=== PATIENT | male | born 1970 | race Caucasian/White ===

== ENCOUNTER 2023-04-07 14:32 | Day surgery (SDC) | payer OTHER, SELFPAY ==
--- NOTE | 2023-04-07 14:40 | FL_ITS ---
[address] [address] Patient Name: SUKH ADLER MRN: [id number] date: 1970 Sex: M Assigned Patient Location: [place] Current Patient Location: Accession/Order Number: [id number] Exam Date: 04/07/2023 14:50 Report Date: 04/07/2023 17:03 At the request of: NON-STAFF PHYSICIAN Procedure: FL guided needle placement EXAMINATION: FL hip inj [place], FL guided needle placement HISTORY: Bilateral Hip Pain COMPARISON: No relevant comparison available. FLUOROSCOPY TIME: TECHNIQUE: A joint injection was performed in the usual sterile manner after obtaining informed consent. Standard level fluoroscopic mode of operation utilized. FINDINGS: RIGHT HIP - JOINT: Right hip NEEDLE: 22 gauge, 3.5 spinal needle. MEDICATION: 2cc buffered 1% lidocaine for subcutaneous anesthesia. 2cc Omnipaque-300 iodinated contrast to visualize the joint space. Mixture of Kenalog 40 mg, 0.5% Bupivacaine 2 mL and Omnipaque 300 3mL was injected into the joint space. TECHNIQUE: Anterior approach. A single stick was successful in gaining access to the joint space. CLINICAL: Decreased pain following injection. COMPLICATIONS: None. OTHER: Negative. FL/FL guided needle placement IMPRESSION: 1. Successful therapeutic right hip injection. FINDINGS: LEFT HIP - JOINT: Left hip NEEDLE: 22 gauge, 3.5 spinal needle. MEDICATION: 2cc buffered 1% lidocaine for subcutaneous anesthesia. 2cc Omnipaque-300 iodinated contrast to visualize the joint space. Mixture of Kenalog 40 mg, 0.5% Bupivacaine 2 mL and Omnipaque 300 3mL was injected into the joint space. TECHNIQUE: Anterior approach. A single stick was successful in gaining access to the joint space. CLINICAL: Decreased pain following injection. COMPLICATIONS: None. OTHER: Negative. IMPRESSION: 1. Successful therapeutic left hip injection. Electronically authenticated by: JENNIFER MULLINS Date: 04/07/2023 17:03
--- NOTE | 2023-04-07 14:40 | FL_ITS ---
[address] [address] Patient Name: SUKH ADLER MRN: [id number] date: 1970 Sex: M Assigned Patient Location: [place] Current Patient Location: Accession/Order Number: [id number] Exam Date: 04/07/2023 14:50 Report Date: 04/07/2023 17:03 At the request of: NON-STAFF PHYSICIAN Procedure: FL hip inj [place] EXAMINATION: FL hip inj [place], FL guided needle placement HISTORY: Bilateral Hip Pain COMPARISON: No relevant comparison available. FLUOROSCOPY TIME: TECHNIQUE: A joint injection was performed in the usual sterile manner after obtaining informed consent. Standard level fluoroscopic mode of operation utilized. FINDINGS: RIGHT HIP - JOINT: Right hip NEEDLE: 22 gauge, 3.5 spinal needle. MEDICATION: 2cc buffered 1% lidocaine for subcutaneous anesthesia. 2cc Omnipaque-300 iodinated contrast to visualize the joint space. Mixture of Kenalog 40 mg, 0.5% Bupivacaine 2 mL and Omnipaque 300 3mL was injected into the joint space. TECHNIQUE: Anterior approach. A single stick was successful in gaining access to the joint space. CLINICAL: Decreased pain following injection. COMPLICATIONS: None. OTHER: Negative. FL/FL hip inj [place] IMPRESSION: 1. Successful therapeutic right hip injection. FINDINGS: LEFT HIP - JOINT: Left hip NEEDLE: 22 gauge, 3.5 spinal needle. MEDICATION: 2cc buffered 1% lidocaine for subcutaneous anesthesia. 2cc Omnipaque-300 iodinated contrast to visualize the joint space. Mixture of Kenalog 40 mg, 0.5% Bupivacaine 2 mL and Omnipaque 300 3mL was injected into the joint space. TECHNIQUE: Anterior approach. A single stick was successful in gaining access to the joint space. CLINICAL: Decreased pain following injection. COMPLICATIONS: None. OTHER: Negative. IMPRESSION: 1. Successful therapeutic left hip injection. Electronically authenticated by: JENNIFER MULLINS Date: 04/07/2023 17:03
[2023-04-07] MEDS: BUPIVACAINE HCL 0.5% PF 50 MG/10 ML VIAL 4 ML INJ (15:20)
[2023-04-07] MEDS: TRIAMCINOLONE ACETONIDE 40 MG/ML VIAL 80 MG INJ (15:20)
[2023-04-07] MEDS: LIDOCAINE HCL 20 ML, SODIUM BICARBONATE 2 MEQ INJ (15:20)
--- NOTE | 2023-04-07 16:10 | PC.NURSE ---
03/30/23 Pt contacted and reviewed procedure, date, time, and prep.
== END 2023-04-07 15:50 | disposition home or self-care (01) ==
LOC: FL 14:32
PROVIDERS: Radiology Diagnostic Radiology; PCP Family Medicine
DX: M16.0 Bilateral primary osteoarthritis of hip (principal)
CPT/HCPCS: 20610; 77002; Q9967

== ENCOUNTER 2023-04-22 10:25 | Emergency (ER) | payer OTHER, SELFPAY ==
[2023-04-22 10:30] VITALS: BP 131/68; PULSE 68; RESP 18; TEMP 36.6; O2SAT 98; BMI 34.5
--- NOTE | 2023-04-22 11:00 | ED.GENADUL1 ---
HPI - General Adult General Chief complaint: Extremity Injury, Lower Stated complaint: PELVIC PAIN Time Seen by Provider: 04/22/23 10:28 Source: patient Mode of arrival: walk-in Limitations: no limitations History of Present Illness HPI narrative: Patient had steroid injections in both hips about 3 weeks ago - he said it was at [facility] with Dr Verdin. He felt fine afterward other than some numbness at the site on the left immediately after the injections. About a week ago, he suddenly experienced pain the left hip, which radiated down the left thigh. he said that he felt a bulge near the site of injection. The pain was moderate but went away within about an hour and the bulge went away, too , he told me. He had another episode this week and decided to come back to [facility] to be evaluated. he is without pain and without any bulging at this time. He does not know the name of the physician in [place] who he saw that referred him to [facility] for the injections. He told me that the physician specializes in joint pains . No other symptoms - no back pain, no urinary symptoms, no GI symptoms, no bowel or bladder dysfunction, no gait abnormality, no lower extremity pain, no scortal or penile pain or swelling. Related Data Home Medications Medication Instructions Recorded Confirmed No Known Home Medications 03/30/23 03/30/23 Allergies Allergy/AdvReac Type Severity Reaction Status Date / Time No Known Drug Allergies Allergy Verified 04/07/23 15:56 [facility] Medical History (Updated 04/22/23 @ 11:00 by Jorge Townsend) Osteoarthritis ?M19.90 - Unspecified osteoarthritis, unspecified site (ICD-10) Scoliosis ?M41.9 - Scoliosis, unspecified (ICD-10) Social History Smoking status: Current every day smoker Exam Narrative Exam Narrative: Nurses notes and vital signs reviewed and patient is not hypoxic. afebrile General: Well-appearing and in no apparent distress. Skin: Warm, dry, no pallor noted. No rash. Cardiovascular: Regular Rate and Rhythm without murmur, gallop or rub. Respiratory: No accessory muscle use or respiratory distress. Back: No midline thoracic or lumbar vertebral tenderness. Musculoskeletal: No pain with palpation of the the pelvis, or either hip. He has mild bilateral hip pain with passive hip ROM but no crepitus or sign of dislocation noted. Both LEs with normal ROM, no calf or popliteal tenderness, no lower extremity edema/swelling GI: Abdomen is soft, non-distended. Normal bowel sounds. No or hernias masses appreciated. No tenderness to palpation. No rebound, guarding, or rigidity noted. Genital: normal male genitalia visualized without scrotal swelling or penile swelling observed. Neurological: A&O x4. No cranial nerve dysfunction observed. No truncal ataxia. Moves all extremities. Sensation intact. Psychiatric: Cooperative and interactive. Normal mood and affect. Constitutional Vital Signs, click to edit/add: Last Vital Signs Temp 97.8 F 04/22/23 10:30 Pulse 68 04/22/23 10:30 Resp 18 04/22/23 10:30 BP 131/68 04/22/23 10:30 Pulse Ox 98 04/22/23 10:30 Course Vital Signs Vital signs: Vital Signs Temperature 97.8 F 04/22/23 10:30 Pulse Rate 68 04/22/23 10:30 Respiratory Rate 18 04/22/23 10:30 Blood Pressure 131/68 04/22/23 10:30 Pulse Oximetry 98 04/22/23 10:30 Temperature 97.8 F 04/22/23 10:30 Pulse Rate 68 04/22/23 10:30 Respiratory Rate 18 04/22/23 10:30 Blood Pressure 131/68 04/22/23 10:30 Pulse Oximetry 98 04/22/23 10:30 Medical Decision Making MDM Narrative Medical decision making narrative: Patient without symptoms or physical evidence of pelvic/lower abdominal bulging. Patient and I discused his case, my exam findings. No need for imaging at this time. He was given reassurance and instructed to follow up with the specialist in [place] - he said he will call Monday. Discharge Plan Discharge Chief Complaint: Extremity Injury, Lower Clinical Impression: Chronic hip pain Patient Disposition: Home, Self-Care Time of Disposition Decision: 11:00 Prescriptions / Home Meds: No Action No Known Home Medications Instructions: Hip Pain (ED) Stand Alone Forms: Portal Instructions Referrals: MIRLEA BOWMAN [Primary Care Provider] - 1 week
[2023-04-22 11:11] VITALS: BP 130/60; PULSE 70; RESP 18; O2SAT 98
== END 2023-04-22 11:12 | disposition home or self-care (01) ==
LOC: ER 11:10
PROVIDERS: Emergency Provider Emergency Medicine; PCP Family Medicine
DX: M25.552 Pain in left hip (principal); M25.551 Pain in right hip; G89.29 Other chronic pain; M19.90 Unspecified osteoarthritis, unspecified site; M41.9 Scoliosis, unspecified; F17.210 Nicotine dependence, cigarettes, uncomplicated
CPT/HCPCS: 99281

== ENCOUNTER 2024-03-08 13:19 | Day surgery (SDC) | payer OTHER, SELFPAY ==
--- OUTSIDE RECORDS SUMMARY | 2024-03-08 13:22 | XMS_ITS | CCD ---
Author Organization [facility] Care Team Providers Care Home Service Director Name Role Phone Cathy DO Mirela Mitchell Attending Provider MD Mirela Gregory Primary Care Provider MISC, DR BEACH Admitting Unavailable MISC, DR BEACH Attending Unavailable DEFRANCE, DR DIETZ Primary Care Unavailable MISC, DR BEACH Consulting Unavailable ZIEBER, DR JENNIFER Rose Consulting Unavailable Unavailable Primary Care Provider Unavailabl e Mirela White Primary Care Provider WHITE, MIRELA WEBER Primary Care Unavaila ble JOSE, QUOC Attending Unavailable JOSE, QUOC Referring Unavailable DE JAIMIE, MIRELA WEBER Primary Care Unavaila ble KAYCE VELAZQUEZ Referring Unavailable DE JAIMIE, MIRELA WEBER Primary Care Unavaila ble DE JAIMIE, MIRELA WEBER Primary Care Unavaila ble JOSE, QUOC Referring Unavailable MESKORACHEL Attending Unavailable CHRISTYKO, RACHEL Referring Unavailable JOSE, QUOC Admitting Unavailable JOSE, QUOC Attending Unavailable SUKH CAO Referring Unavailable SELF Referring Unavailable JOSE, QUOC Attending Unavailable SELF Referring Unavailable SUKH CAO Attending Unavailable SELF Referring Unavailable KARIME STREETER Attending Unavailable LEEANN MORIN Attending Unavailable SELF Referring Unavailable LEEANN MORIN Referring Unavailable Mirela White Primary Care Provider Unavailable Primary Care Provider UnavailKATELIN Noguera Attending Unavailable Medications Current Medications Medication Drug Class(es) Dates Sig (Normalized) Sig (Original) ergocalciferol 1.25 mg oral capsule (3 sources) Provitamin D2 Compound Start: 10-30-2023 End: 01-28-2024 take 1 capsule by mouth two times weekly ergocalciferol 50,000 unit capsule (VITAMIN D2, DRISDOL) Take 1 capsule by mouth two times a week. 24 capsule 10/30/2023 Active magnesium oxide 400 mg oral tablet (10 sources) Start: 08-07-2023 End: 10-06-2023 take 1 tablet by mouth once daily magnesium oxide 400 mg magnesium tab Take 400 mg by mouth once daily. 30 tablet 1 08/07/2023 Active Comment on above: Take 400 mg by mouth once daily. mupirocin 0.02 mg/mg topical ointment (1 source) RNA Synthetase Inhibitor Antibacterial Start: 07-14-2023 End: 07-19-2023 mupirocin (BACTROBAN) 2 % ointment Indications: Primary osteoarthritis of right hip Apply to affected area two times a day for 5 days. 22 g 0 07/14/2023 07/19/2023 Active Comment on above: Apply to affected ar ea two times a day for 5 days. Vitamin B Complex (10 sources) Start: 08-07-2023 take 1 tablet by mouth once daily vitamin b complex tab Take 1 tablet by mouth once daily. 30 tablet 1 08/07/2023 Active Start: 08-07-2023 End: 10-06-2023 take 1 tablet by mouth once daily vitamin b complex tab Take 1 tablet by mouth once daily. 30 tablet 1 08/07/2023 10/06/2023 Active Comment on above: Take 1 tablet by vanessa th once daily. Completed/Discontinued Medications Medication Drug Class(es) Dates Sig (Normalized) Sig (Original) amitriptyline hydrochloride 10 mg oral tablet (2 sources) Tricyclic Antidepressant Start: 09-27-2023 End: 11-26-2023 take 1 tablet by mouth once daily at bedtime amitriptyline (ELAVIL) 10 mg tablet Take 1 tablet by mouth daily at bedtime. 30 tablet 1 09/27/2023 10/25/2023 Discontinued Comment on above: Take 1 tablet by vanessa th daily at bedtime. ibuprofen 800 mg oral tablet (4 sources) Nonsteroidal Anti-inflammatory Drug Start: 09-19-2023 End: 10-25-2023 take 1 tablet by mouth every eight hours at mealtime as needed ibuprofen (MOTRIN) 800 mg tablet TAKE 1 TABLET BY MOUTH EVERY 8 HOURS NEEDED FOR 7 DAYS WITH FOOD OR MILK 0 09/19/2023 10/25/2023 Discontinued Comment on above: TAKE 1 TABLET BY VANESSA TH EVERY 8 HOURS NEEDED FOR 7 DAYS WITH FOOD OR MILK Problems Active Problems Problem Classification Problem Date Documented Date Episodic/Chronic Abdominal hernia (3 sources) Inguinal hernia; Translations: [Unilateral inguinal hernia, without obstruction or gangrene, not specified as recurrent] Onset: 10-25-2023 08-09-2023 Episodic Deficiency and other anemia (1 source) Anemia; Translations: [Anemia, unspecified] 07-14-2023 Episodic Deficiency and other anemia (1 source) Anemia, unspecified; Translations: [Anemia, unspecified type] Onset: 10-25-2023 Episodic Osteoarthritis (20 sources) Bilateral primary osteoarthritis of hip; Translations: [Osteoarthritis of right hip joint] Onset: 10-21-2022 Chronic Other ear and sense organ disorders (1 source) Sensorineural hearing loss, unilateral, right ear, with unrestricted hearing on the contralateral side; Translations: [Sensorineural hearing loss, unilateral] 09-27-2023 Chronic Other ear and sense organ disorders (1 source) Sensorineural hearing loss, bilateral; Translations: [Sensorineural hearing loss (SNHL) of both ears] Onset: 09-22-2023 Chronic Other ear and sense organ disorders (1 source) Other specified hearing loss, unspecified ear; Translations: [Other specified hearing loss, unspecified ear] Onset: 08-07-2023 Chronic Other ear and sense organ disorders (1 source) Sensorineural hearing loss, bilateral; Translations: [Sensorineural hearing loss, bilateral] 09-22-2023 Chronic Other screening for suspected conditions (not mental disorders or infectious disease) (2 sources) Patient encounter status; Translations: [Encounter for screening for malignant neoplasm of colon] 01-21-2022 Episodic Residual codes; unclassified (1 source) Postoperative state; Translations: [Other specified postprocedural states] 11-13-2023 Episodic Residual codes; unclassified (1 source) Other specified postprocedural states; Translations: [Post-operative state] Onset: 11-13-2023 Episodic Past or Other Problems Problem Classification Problem Date Documented Da te Episodic/Chronic Other diseases of veins and lymphatics (13 sources) Varicocele; Translations: [Scrotal varices] Onset: 09-20-2016 07-14-2023 Episodic Other ear and sense organ disorders (5 sources) Bilateral tinnitus; Translations: [Tinnitus, bilateral] Onset: 10-25-2023 10-25-2023 Episodic Results Test Name Value Interpretation Reference Range Facility [facility] 11-13-2023 CNOV Office Visit (CHEVY ) SUKH ADLER ([id number]) 1970 M Date Time Provider Department 11/13/23 2:20 PM QUOC GARCIA During your visit today, we recorded the following information about you: Temperature Pulse Blood pressure Weight 97.5 degrees 67/minute 144/70 85.7 kg Height 1.753 m Lou Augustin MA 11/13/2023 11:31 AM Signed What is the reason for your visit today? Post op Who is your referring physician? Dr. Garcia Are you having poor oral intake? NO Have you had unintentional weight loss of 15 lbs/7 Kg in the last 3-6 months? NO Bowels: regular Wound: clean AND dry Temperature: No Drains: No Rosenda Carlton MD 11/13/2023 2:38 PM Signed [facility] PROGRESS NOTE Sukh Adler [id number] ASSESSMENT AND PLAN Sukh Adler is a 53 year old male who underwent a laparoscopic left inguinal hernia repair with mesh on 10/31/[address] Garcia, Doing well post-op - follow-up as needed Seen and discussed with Dr. Jose Calrton MD PGY4 INTERVAL HPI: Has been doing well post-op. Had some periumbilical pain for a few days post-op that has improved. Denies fevers/chills. No nausea/vomiting. Passing gas and having bowel movements. No recurrent bulging or signs of recurrence. OBJECTIVE: BP 144/70 Pulse 67 Temp 36.4 ?C (97.5 ?F) (Temporal) Ht 175.3 cm (5' 9 ) Wt 85.7 kg (189 lb) BMI 27.91 kg/m? Body mass index is 27.91 kg/m?. GENERAL: Alert and oriented, no acute distress, cooperative. LUNGS: Non labored breathing ABDOMEN: soft, non tender, mildly distended. Incisions with glue in place, healing well. Quoc Garcia MD 11/13/2023 2:38 PM Signed I have seen and evaluated the patient and discussed the case with the resident physician. I agree with the assessment and plan as documented in the resident?s note. Here after lap L inguinal hernia repair with mesh on 10/30, doing well overall, no major issues and pleased with repair. F/U 1 year. Incisions healing. Quoc Garcia MD November 13, 2023 2:38 PM Referring Provider: SELF [200] Allergies As of Date: 11/13/2023 (No Known Allergies) Date Reviewed: 11/13/2023 Reviewed by: Quoc Garcia MD - Fully Assessed Reason for Visit: Post Op [174] Primary Visit Diagnosis:Post-operat bhavani state [Z98.890] Prescriptions as of 11/13/2023 - ergocalciferol 50,000 unit capsule (VITAMIN D2, DRISDOL) Take 1 capsule by mouth two times a week. - magnesium oxide 400 mg magnesium tab Take 400 mg by mouth once daily. - vitamin b complex tab Take 1 tablet by mouth once daily. 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 Post op Who is your referring physician? Dr. Garcia Are you having poor oral intake? NO Have you had unintentional weight loss of 15 lbs/7 Kg in the last 3-6 months? NO Bowels: regular Wound: clean AND dry Temperature: No Drains: No Encounter Status:Closed by QUOC GARCIA on 11/13/23 Normal [facility] POSTPROC EVALon 024 ANES POSTPROC EVAL HNO ID: [id number] Author: PETR ROBERTSON MD, PhD Service: ? Author Type: Anesthesiologist Type: Anesthesia Postprocedure Evaluation Filed: 10/31/2023 11:33 Note Text: POST ANESTHESIA EVALUATION NOTE : 1970 Procedure Summary Date: 10/31/23 Room / Location: [address] Anesthesia Start: 717 Anesthesia Stop: 937 Procedure: LAPAROSCOPIC HERNIORRHAPHY, INGUINAL INITIAL (Left: Groin) Diagnosis: Preoperative examination Non-recurrent unilateral inguinal hernia without obstruction or gangrene (Preoperative examination [Z01.818]) (Non-recurrent unilateral inguinal hernia without obstruction or gangrene [K40.90]) Surgeons: Quoc Garcia MD Responsible Provider: Petr Robertson MD, PhD Anesthesia Type: general ASA Status: 2 Anesthesia Type: general Airway Type: ETT Last Vitals Vitals Value Taken Time BP 118/64 10/31/23 1113 Temp 46.8 ?C (116.2 ?F) 10/31/23 1043 Pulse 58 10/31/23 1043 Resp 18 10/31/23 1113 SpO2 98 % 10/31/23 1113 Post Anesthesia Patient Status Patient Evaluation: PACU. PACU/ICU Patient Condition: stable. Anticipated Disposition: inpatient floor planned admission. Neurological Status: aware and responsive. Pulmonary Status: breathing comfortably on room air Airway Control: returned to baseline unsupported. Cardiovascular Status: stable. Pain Management: clinically adequate Postoperative Hydration: acceptable. Intraoperative Events: no significant anesthesia events Post Operative Nausea/Vomiting Status: no significant post operative nausea or vomiting Recommendation: continue current plan of care. Anesthesia Observations No Documentation SIGNATURE: Siena Robertson MD, PhD PATIENT NAME: Sukh Adler DATE: October 31, 2023 TIME: 11:33 AM CSN: [id number] Normal [facility] ANES PRE-OPon 10-31-2023 ANES PRE-OP HNO ID: [id number] Author: PETR ROBERTSON MD, PhD Service: ? Author Type: Anesthesiologist Type: Anesthesia Preprocedure Evaluation Filed: 10/31/2023 06:56 Note Text: ANESTHESIOLOGY DAY OF SURGERY NOTE : 1970 Procedure Information Date/Time: 10/31/23729 Procedure: LAPAROSCOPIC HERNIORRHAPHY, INGUINAL INITIAL (Left: Groin) Location: [facility] Surgeons: Quoc Garcia MD Estimated body mass index is 28.89 kg/m? as calculated from the following: Height as of this encounter: 172.7 cm (5' 8 ). Weight as of this encounter: 86.2 kg (190 lb). Most recent hematocrit and potassium results: Hematocrit 42.3 10/25/2023 Potassium 4.1 10/25/2023 Relevant Problems ANESTHESIA (within normal limits) CARDIO (+) Varicocele ENDO (within normal limits) GI (within normal limits) -RENAL (within normal limits) NEURO-PSYCH (within normal limits) PULMONARY (within normal limits) I - PHYSICAL EVALUATION AIRWAY Patient intubated: No. Tracheostomy tube not present Mallampati: I. TM distance: >3 FB. Neck ROM: full ROM without neurological symptoms. Mouth opening: adequate. Short neck: no. Thick neck: no Microretrognathia/Ronald ronagthia/Recessed Chin: No DENTAL Dental findings: teeth intact. Additional exam findings: yes. CARDIOVASCULAR Rhythm: regular Rate: normal PULMONARY Breath sounds clear to auscultation. ABDOMINAL Abdomen: soft. II - ANESTHESIA PLAN ASA Score: 2 Anesthetic Plan: general Airway type: ETT The patient is not a current smoker. NPO Status: adequate Beta Millicent Administration of chronic beta millicent medication planned. Monitoring Plan Monitoring plan: standard ASA. Post Procedure Analgesic Plan Postoperative analgesic plan: parenteral or oral opioids. Informed Consent Anesthetic risks, benefits, alternatives, personnel and consent discussed: yes. Patient / Responsible [employer] agrees to proceed: yes Patient / Surrogate agrees to blood products: Yes DNR status not reviewed with patient and/or family prior to surgery. Significant changes in the patient condition since the History and Physical, not otherwise documented in primary service progress note: no. Potential Anesthesia issues that may suggest increased risk of complications or contraindication to planned procedure: none. Vitals Value Taken Time BP 149/81 10/31/23 0544 Pulse 63 10/31/23 0544 Resp 18 10/31/23 0544 Temp 36 ?C (96.8 ?F) 10/31/23 0544 SpO2 100 % 10/31/23 0544 Facility-Administered Medications as of 10/31/2023 Medication Dose Route Frequency heparin 5,000 Units injection 5,000 Units SUBCUTANEOUS ONCE lidocaine (PF) 10 mg/mL (1 %) 1-2 mg injection (XYLOCAINE) 0.1-0.2 mL INTRADERMAL PRN Or lidocaine 1% 0.25 mL subcutaneous j-tip syringe (XYLOCAINE) 0.25 mL SUBCUTANEOUS PRN lactated ringers iv infusion 5-30 mL/hr INTRAVENOUS CONTINUOUS NaCl 0.9% iv flush bag 20 mL INTRAVENOUS PRN ceFAZolin iv piggyback 2 g in D5W (iso-osmotic) 100 mL (ANCEF) 2 g INTRAVENOUS Pre-Op Once Outpatient Medications as of 10/31/2023 Medication Sig magnesium oxide 400 mg magnesium tab Take 400 mg by mouth once daily. vitamin b complex tab Take 1 tablet by mouth once daily. I have interviewed and examined the patient. I have reviewed the medical record and/or the pre-anesthesia evaluation, pertinent labs, and test results. This contains updated information obtained within 48 hours of Surgery/Procedure. SIGNATURE: Siena Robertson MD, PhD PATIENT NAME: Sukh Adler DATE: October 31, 2023 TIME: 6:47 AM CSN: [id number] Normal [facility] BRIEF OP NOTon 10-31-2023 BRIEF OP NOT HNO ID: [id number] Author: CHICO NÚÑEZ MD Service: General Surgery Author Type: Resident Type: Brief Op Note Filed: 10/31/2023 09:26 Note Text: GENERAL SURGERY BRIEF OP NOTE LOG ID: [id number] Surgery/Procedure Date: 10/31/2023 Incision/Procedure Start Time: 7:39 AM Incision Close/Procedure End Time: 9:21 AM Surgeon(s) and Avionics Supervisor(s): Surgeon(s) and Role: * Quoc Garcia MD - Primary * Chico Núñez MD - Resident - Assisting No Additional Staff Procedure(s): Laparoscopic transabdominal preperitoneal hernia repair (left) Anesthesia: General Findings: left indirect inguinal hernia, please see operative report for full details Tubes/Drains: None Estimated Blood Loss: 5 cc Specimens: * No specimens in log * Implant: Implant Name Type Inv. Item Serial No. Table Machine Operator Lot No. LRB No. Used Action MESH BARD 3DMAX XL 3D ANATOMICAL CURVE FLAT POLYPROPYLENE [id number] CMM - [id number] Mesh MESH BARD 3DMAX XL 3D ANATOMICAL CURVE FLAT POLYPROPYLENE 12.4CMX17.3 CMM B[employer] [id number] Left 1 Implanted Wound Classification: Class 1, operative wound clean, non-traumatic, with no inflammation encountered, no break in technique, gastrointestinal and genitor-urinary tracts not entered Complications: None Pre-Op/Pre-Procedure Diagnosis: Pre-Op Diagnosis Codes: * Preoperative examination [Z01.818] * Non-recurrent unilateral inguinal hernia without obstruction or gangrene [K40.90] Post-Op/Post-Procedur e Diagnosis: Same SIGNATURE: Chico Núñez MD PATIENT NAME: Sukh Adler DATE: October 31, 2023 TIME: 9:25 AM PAGER/CONTACT #: [phone] [facility] OPERATIVE NOon 10-31-2023 OPERATIVE NO HNO ID: [id number] Author: QUOC GARCIA MD Service: General Surgery Author Type: Physician Type: Operative Report Filed: 11/02/2023 15:03 Note Text: [facility] - Operative Report [id number] [address] [place] SUKH ADLER : 1970 AGE: 53. SEX: M PATIENT TYPE: A HOSP SVC: [facility] LOCATION: [place] [address] ATTENDING PHYSICIAN: Quoc Garcia M.D. CSN NUMBER: [id number] DATE OF SURGERY/PROCEDURE: 10/31/2023 INCISION/PROCEDURE START TIME: 7:39 AM INCISION CLOSE/PROCEDURE END TIME: 9:21 AM PREOPERATIVE DIAGNOSIS: Left inguinal hernia. POSTOPERATIVE DIAGNOSIS: Left inguinal hernia. SURGEON: Quoc Garcia M.D. [employer]: Resident, Dr. Tanya Núñez. SURGERY/PROCEDURE: Laparoscopic left indirect inguinal hernia repair with mesh. ANESTHESIA: General endotracheal. ESTIMATED BLOOD LOSS: 10 mL. COMPLICATIONS: None apparent. INDICATIONS FOR PROCEDURE: The patient is a 53-year-old male without significant prior history, who presented with a very symptomatic inguinal hernia. He had not ever had any major abdominal surgery. He has bilateral osteoarthritis of the hips, but is otherwise healthy. He was offered a laparoscopic repair of his hernia along with participation in the opioids trial and he was agreeable to proceed as outlined. DESCRIPTION OF PROCEDURE: The patient was brought to the operating room and placed supine on the OR table. Anesthesia was induced without any complications. He received IV Ancef and 5000 units of subcutaneous heparin and had bilateral sequential compression devices in place and on. After anesthesia was induced, the abdomen was prepped and draped in the usual sterile fashion with both arms padded and tucked. A curvilinear infraumbilical incision was carried down through the skin and subcutaneous tissues and we grasped the umbilical stalk and incised the anterior fascia and entered safely with the Mele port. We insufflated to a pressure of 15 mmHg and surveyed the operative field revealed a left indirect hernia as expected. There was nothing on the right side. A left-sided 5 mm port was placed above the level of the umbilicus with the lateral edge of the rectus sheath and the same was done on the right side. We incised the posterior rectus sheath on the left side and carried this out towards the ASIS. Coming medially, we identified the pubis and Juni's ligament laterally. We incised the posterior rectus sheath to get back into the preperitoneal plane. We carefully dissected the cord structures off the sac. These were fairly stuck and there was a fair amount of oozing here, but we were able to control this with judicious cautery. Once we got the hernia sac completely reduced, and a wide preperitoneal plane, we ensured hemostasis and an extra large 3DMax mesh was selected for the repair and introduced into the space. This was secured directly to pubis and Juni's ligament using 2 ProTacks and then one tack was placed high medially taking care to avoid the epigastric vessels and one tack was placed high laterally taking care to avoid the iliopubic tract by making sure we could feel the tips of our fingers. We then closed the peritoneum laterally to medially and being satisfied with the appearance of this, we surveyed the operative field and found it to be hemostatic without evidence of injury to anything and looking through the middle port, we removed both of our side ports under direct laparoscopic vision. We desufflated the abdomen and then closed the anterior fascia using #0 Vicryl [id number] interrupted sutures and then the skin was closed in absorbable layers. Exofin was applied. Additional local anesthetic was given. The patient was awoken and taken to the recovery room in excellent condition. I was present and scrubbed for the entirety of the case. COUNTS: All sponge, needle, and instrument counts were reported to be correct x3 at the end of the case. Quoc Garcia M.D. AP:[id number] /[id number] Normal [facility] 25(OH)D3 SerPl-ncon 2023 25-hydroxyvitamin D3 [Mass/Vol] 21.0 ng/mL Low 31.0-80.0 [facility] Comment on above: Order Comment: Speci men Type: BLOOD SPECIMENOrdering Facility: [facility] Address: [address] [place] [address] Performed By: #### 1 989-3 ####[facility] [id number] [place] [address] [place] CBC W Auto Differential pane l (Bld)on 10-25-2023 Basophils (Bld) [#/Vol] 0.09 10*3/uL Normal <0.11 [facility] Comment on above: Order Comment: Speci men Type: BLOOD SPECIMENOrdering Facility: [facility] Address: [address] [place] [address] Performed By: #### 5 7021-8 ####[facility] LABIA [id number] [place] [address] [place] Basophils/100 WBC (Bld) 1.1 % Normal [facility] Comment on above: Order Comment: Speci men Type: BLOOD SPECIMENOrdering Facility: [facility] Address: [address] [place] [address] Performed By: #### 5 7021-8 ####[facility]IA [id number] [place] [address] [place] Differential cell count method Nom (Bld) Auto Normal [facility] Comment on above: Order Comment: Speci men Type: BLOOD SPECIMENOrdering Facility: [facility] Address: [address] [place] [address] Performed By: #### 5 7021-8 ####[facility] LABCLIA [id number] [place] [address] [place] Eosinophils (Bld) [#/Vol] 0.19 10*3/uL Normal <0.46 [facility] Comment on above: Order Comment: Speci men Type: BLOOD SPECIMENOrdering Facility: [facility] Address: [address] [place] [address] Performed By: #### 5 7021-8 ####[facility] LABIA [id number] [place] [address] [place] Eosinophils/100 WBC (Bld) 2.3 % Normal [facility] Comment on above: Order Comment: Speci men Type: BLOOD SPECIMENOrdering Facility: [facility] Address: [address] [place] [address] Performed By: #### 5 7021-8 ####[facility] LABIA [id number] [place] [address] [place] Erythrocyte distribution width (RBC) [Ratio] 13.1 % Normal 11.5-15.0 [facility] Comment on above: Order Comment: Speci men Type: BLOOD SPECIMENOrdering Facility: [facility] Address: [address] [place] [address] Performed By: #### 5 7021-8 ####[facility] LABIA [id number] [place] [address] [place] Hematocrit (Bld) [Volume fraction] 42.3 % Normal 39.0-51.0 [facility] Comment on above: Order Comment: Speci men Type: BLOOD SPECIMENOrdering Facility: [facility] Address: [address] [place] [address] Performed By: #### 5 7021-8 ####[facility] LABCLIA [id number] [place] [address] [place] Hemoglobin (Bld) [Mass/Vol] 14.4 g/dL Normal 13.0-17.0 [facility] Comment on above: Order Comment: Speci men Type: BLOOD SPECIMENOrdering Facility: [facility] Address: [address] [place] [address] Performed By: #### 5 7021-8 ####[facility] LABCLIA [id number] [place] [address] [place] Immature granulocytes (Bld) [#/Vol] 0.03 10*3/uL Normal <0.10 [facility] Comment on above: Order Comment: Speci men Type: BLOOD SPECIMENOrdering Facility: [facility] Address: [address] [place] [address] Performed By: #### 5 7021-8 ####[facility] LABIA [id number] [place] [address] [place] Immature granulocytes/100 WBC (Bld) 0.4 % Normal [facility] Comment on above: Order Comment: Speci men Type: BLOOD SPECIMENOrdering Facility: [facility] Address: [address] [place] [address] Performed By: #### 5 7021-8 ####[facility] LABCLIA [id number] [place] [address] [place] Lymphocytes (Bld) [#/Vol] 2.19 10*3/uL Normal 1.00-4.00 [facility] Comment on above: Order Comment: Speci men Type: BLOOD SPECIMENOrdering Facility: [facility] Address: [address] [place] [address] Performed By: #### 5 7021-8 ####[facility] LABIA [id number] [place] [address] [place] Lymphocytes/100 WBC (Bld) 26.6 % Normal [facility] Comment on above: Order Comment: Speci men Type: BLOOD SPECIMENOrdering Facility: [facility] Address: [address] [place] [address] Performed By: #### 5 7021-8 ####[facility] LABCLIA [id number] [place] [address] [place] MCH (RBC) [Entitic mass] 30.6 pg Normal 26.0-34.0 [facility] Comment on above: Order Comment: Speci men Type: BLOOD SPECIMENOrdering Facility: [facility] Address: [address] [place] [address] Performed By: #### 5 7021-8 ####[facility] LABCLIA [id number] [place] [address] [place] MCHC (RBC) [Mass/Vol] 34.0 g/dL Normal 30.5-36.0 [facility] Comment on above: Order Comment: Speci men Type: BLOOD SPECIMENOrdering Facility: [facility] Address: [address] [place] [address] Performed By: #### 5 7021-8 ####[facility] LABIA [id number] [place] [address] [place] MCV (RBC) [Entitic vol] 90.0 fL Normal 80.0-100.0 [facility] Comment on above: Order Comment: Speci men Type: BLOOD SPECIMENOrdering Facility: [facility] Address: [address] [place] [address] Performed By: #### 5 7021-8 ####[facility] LABCLIA [id number] [place] [address] [place] Monocytes (Bld) [#/Vol] 0.56 10*3/uL Normal <0.87 [facility] Comment on above: Order Comment: Speci men Type: BLOOD SPECIMENOrdering Facility: [facility] Address: [address] [place] [address] Performed By: #### 5 7021-8 ####[facility] LABCLIA [id number] [place] [address] [place] Monocytes/100 WBC (Bld) 6.8 % Normal [facility] Comment on above: Order Comment: Speci men Type: BLOOD SPECIMENOrdering Facility: [facility] Address: [address] [place] [address] Performed By: #### 5 7021-8 ####[facility] LABCLIA [id number] [place] [address] [place] Neutrophils (Bld) [#/Vol] 5.18 10*3/uL Normal 1.45-7.50 [facility] Comment on above: Order Comment: Speci men Type: BLOOD SPECIMENOrdering Facility: [facility] Address: [address] [place] [address] Performed By: #### 5 7021-8 ####[facility] LABCLIA [id number] [place] [address] [place] Neutrophils/100 WBC (Bld) 62.8 % Normal [facility] Comment on above: Order Comment: Speci men Type: BLOOD SPECIMENOrdering Facility: [facility] Address: [address] [place] [address] Performed By: #### 5 7021-8 ####[facility] LABCLIA [id number] [place] [address] [place] Nucleated RBC (Bld) [#/Vol] 10*3/uL Normal <0.01 [facility] Comment on above: Order Comment: Speci men Type: BLOOD SPECIMENOrdering Facility: [facility] Address: [address] [place] [address] Performed By: #### 5 7021-8 ####[facility] LABCLIA [id number] [place] [address] [place] Nucleated RBC/100 WBC (Bld) [Ratio] 0.0 /100 WBC Normal [facility] Comment on above: Order Comment: Speci men Type: BLOOD SPECIMENOrdering Facility: [facility] Address: [address] [place] [address] Performed By: #### 5 7021-8 ####[facility] LABCLIA [id number] [place] [address] [place] Platelet mean volume (Bld) [Entitic vol] 10.6 fL Normal 9.0-12.7 [facility] Comment on above: Order Comment: Speci men Type: BLOOD SPECIMENOrdering Facility: [facility] Address: [address] [place] [address] Performed By: #### 5 7021-8 ####[facility] LABCLIA [id number] [place] [address] [place] Platelets (Bld) [#/Vol] 190 10*3/uL Normal 150-400 [facility] Comment on above: Order Comment: Speci men Type: BLOOD SPECIMENOrdering Facility: [facility] Address: [address] [place] [address] Performed By: #### 5 7021-8 ####[facility] LABIA [id number] [place] [address] [place] RBC (Bld) [#/Vol] 4.70 10*6/uL Normal 4.20-6.00 [facility] Comment on above: Order Comment: Speci men Type: BLOOD SPECIMENOrdering Facility: [facility] Address: [address] [place] [address] Performed By: #### 5 7021-8 ####[facility] LABCLIA [id number] [place] [address] [place] WBC (Bld) [#/Vol] 8.24 10*3/uL Normal 3.70-11.00 [facility] Comment on above: Order Comment: Speci men Type: BLOOD SPECIMENOrdering Facility: [facility] Address: [address] [place] [address] Performed By: #### 5 7021-8 ####[facility] LABCLIA [id number] [place] [address] [place] CONFIRM BLOOD TYPEon 024 ABO O Normal [facility] Comment on above: Order Comment: Speci men Type: BLOOD SPECIMENOrdering Facility: [facility] Address: [address] [place] [address] Performed By: #### C ONABO ####[facility] BLOOD BANKCLIA [id number] [place] [address] [place] Rh Nom (Bld) Negative Normal [facility] Comment on above: Order Comment: Speci men Type: BLOOD SPECIMENOrdering Facility: [facility] Address: [address] [place] [address] Performed By: #### C ONABO ####[facility] BLOOD BANKCLIA [id number] [place] [address] [place] Comprehensive metabolic 2000 panelon 10-25-2023 Albumin [Mass/Vol] 4.3 g/dL Normal 3.9-4.9 [facility] Comment on above: Order Comment: Speci men Type: BLOOD SPECIMENOrdering Facility: [facility] Address: [address] [place] [address] Performed By: #### 5 0190-8, 38972-1, 2276-4 ####[facility] LABCLIA [id number] [place] [address] [place] ALP [Catalytic activity/Vol] 63 U/L Normal 38-113 [facility] Comment on above: Order Comment: Speci men Type: BLOOD SPECIMENOrdering Facility: [facility] Address: [address] [place] [address] Performed By: #### 5 0190-8, 00061-7, 2275-09 ####[facility] LABCLIA [id number] [place] [address] [place] ALT [Catalytic activity/Vol] 17 U/L Normal 10-54 [facility] Comment on above: Order Comment: Speci men Type: BLOOD SPECIMENOrdering Facility: [facility] Address: [address] [place] [address] Performed By: #### 5 0190-8, 74667-9, 2275-09 ####[facility] LABCLIA [id number] [place] [address] [place] Anion gap [Moles/Vol] 12 mmol/L Normal 9-18 [facility] Comment on above: Order Comment: Speci men Type: BLOOD SPECIMENOrdering Facility: [facility] Address: [address] [place] [address] Performed By: #### 5 0190-8, 31977-1, 2275-09 ####[facility] LABCLIA [id number] [place] [address] [place] AST [Catalytic activity/Vol] 21 U/L Normal 14-40 [facility] Comment on above: Order Comment: Speci men Type: BLOOD SPECIMENOrdering Facility: [facility] Address: [address] [place] [address] Performed By: #### 5 0190-8, 66814-8, 2275-09 ####[facility] LABCLIA [id number] [place] [id number] [place] Bilirubin [Mass/Vol] 0.5 mg/dL Normal 0.2-1.3 [facility] Comment on above: Order Comment: Speci men Type: BLOOD SPECIMENOrdering Facility: [facility] Address: [address] [place] [address] Performed By: #### 5 0190-8, 02801-1, 2275-09 ####[facility] LABCLIA [id number] [place] [address] [place] Calcium [Mass/Vol] 9.5 mg/dL Normal 8.5-10.2 [facility] Comment on above: Order Comment: Speci men Type: BLOOD SPECIMENOrdering Facility: [facility] Address: [address] [place] [address] Performed By: #### 5 0190-8, 86095-1, 2275-4 ####[facility] LABCLIA [id number] [place] [address] [place] Chloride [Moles/Vol] 103 mmol/L Normal 97-105 [facility] Comment on above: Order Comment: Speci men Type: BLOOD SPECIMENOrdering Facility: [facility] Address: [address] [place] [address] Performed By: #### 5 0190-8, 96606-0, 2275-4 ####[facility] LABCLIA [id number] [place] [address] [place] CO2 [Moles/Vol] 24 mmol/L Normal 22-30 [facility] Comment on above: Order Comment: Speci men Type: BLOOD SPECIMENOrdering Facility: [facility] Address: [address] [place] [address] Performed By: #### 5 0190-8, 81466-7, 2275-4 ####[facility] LABCLIA [id number] [place] [address] [place] Creatinine [Mass/Vol] 1.19 mg/dL Normal 0.73-1.22 [facility] Comment on above: Order Comment: Speci men Type: BLOOD SPECIMENOrdering Facility: [facility] Address: [address] [place] [address] Performed By: #### 5 0190-8, 03119-0, 2275-4 ####[facility] LABCLIA [id number] [place] [id number] [place] Creatinine and Glomerular filtration rate.predicted panel (S/P/Bld) 73 mL/min/1.73m??? Normal >=60 [facility] Comment on above: Order Comment: Ashley jang Type: BLOOD SPECIMENOrdering Facility: [facility] Address: [address] [place] [address] Result Comment: Ondina mated Glomerular Filtration Rate (eGFR) is calculated using the 2020 CKD-EPI creatinine equation. This equation utilizes serum creatinine, sex, and age as parameters. The creatinine assay has traceable calibration to isotope dilution-mass spectrometry. Refer to KDIGO guidelines for clinical interpretation. In patients with unstable renal function, e.g. those with acute kidney injury, the eGFR may not accurately reflect actual GFR. Performed By: #### 5 0190-8, 81671-2, 2275- ####[facility] LABCLIA [id number] [place] [address] [place] Glucose [Mass/Vol] 99 mg/dL Normal 74-99 [facility] Comment on above: Order Comment: Ashley jang Type: BLOOD SPECIMENOrdering Facility: [facility] Address: [address] [place] [address] Result Comment: The [place] Diabetes [employer] (ADA) provides guidance for cutoff values for fasting glucose and random glucose. The ADA defines fasting as no caloric intake for at least 8 hours. Fasting plasma glucose results between 100 to 125 mg/dL indicate increased risk for diabetes (prediabetes). Fasting plasma glucose results greater than or equal to 126 mg/dL meet the criteria for diagnosis of diabetes. In the absence of unequivocal hyperglycemia, results should be confirmed by repeat testing. In a patient with classic symptoms of hyperglycemia or hyperglycemic crisis, random plasma glucose results greater than or equal to 200 mg/dL meet the criteria for diagnosis of diabetes. Reference: Standards of Medical Care in Diabetes 2016, [place] [employer]. Diabetes Care. 2016.39(Suppl 1). Performed By: #### 5 0190-8, 14716-3, 2275-4 ####[facility] LABCLIA [id number] [place] [id number] [place] Potassium [Moles/Vol] 4.1 mmol/L Normal 3.7-5.1 [facility] Comment on above: Order Comment: Speci men Type: BLOOD SPECIMENOrdering Facility: [facility] Address: [address] [place] [address] Performed By: #### 5 0190-8, 47236-6, 4 ####[facility] LABCLIA [id number] [place] [address] [place] Protein [Mass/Vol] 7.4 g/dL Normal 6.3-8.0 [facility] Comment on above: Order Comment: Speci men Type: BLOOD SPECIMENOrdering Facility: [facility] Address: [address] [place] [address] Performed By: #### 5 0190-8, 40552-8, 2275-09 ####[facility] LABCLIA [id number] [place] [address] [place] Sodium [Moles/Vol] 139 mmol/L Normal 136-144 [facility] Comment on above: Order Comment: Speci men Type: BLOOD SPECIMENOrdering Facility: [facility] Address: [address] [place] [address] Performed By: #### 5 0190-8, 53009-0, 2275-09 ####[facility] LABCLIA [id number] [place] [address] [place] Urea nitrogen [Mass/Vol] 18 mg/dL Normal 9-24 [facility] Comment on above: Order Comment: Speci men Type: BLOOD SPECIMENOrdering Facility: [facility] Address: [address] [place] [address] Performed By: #### 5 0190-8, 05715-4, 2275-09 ####[facility] LABCLIA [id number] [address] [address] [place] ECG COMPLETEon 10-25-2023 ECG COMPLETE Ventricular Rate : 7 9 BPM Atrial Rate : 79 BPM P-R Interval : 150 ms QRS Duration : 80 ms Q-T Interval : 354 ms QTC Calculation(Bazett) : 405 ms Calculated P [place] : 51 degrees Calculated R [place] : 75 degrees Calculated T [place] : 47 degrees NORMAL SINUS RHYTHM WITH SINUS ARRHYTHMIA NORMAL ECG Confirmed by CECILIA BOYLE MD ([id number]) on 11/05/2023 6:14:26 PM NAME : SUKH ADLER PID : [id number] : 1970 Gender : Male Race : ORD : [id number] Procedure Date : Oct 25 2023 13:25:14 Edit Date : Nov 05 2023 18:14:27 Diagnosis: NORMAL SINUS RHYTHM WITH SINUS ARRHYTHMIA NORMAL ECG Confirmed by CECILIA BOYLE MD ([id number]) on 11/05/2023 6:14:26 PM Test Reason : Location : 119 : A17 A17 Overread By : CECILIA BOYLE MD Edited By : CECILIA BOYLE MD Referred By : QUOC GARCIA Acquired by : RICK HUDSON [facility] Ferritin SerPl-mCncon 2023 Ferritin [Mass/Vol] 451.0 ng/mL Normal 30.3-565.7 [facility] Comment on above: Order Comment: Speci men Type: BLOOD SPECIMENOrdering Facility: [facility] Address: [address] [place] [address] Performed By: #### 5 0190-8, 37955-5, 2276-4 ####[facility] LABCLIA [id number] [address] [place] HISTORY PHYSICALon 4 HISTORY PHYSICAL HNO ID: [id number] Author: MONCHO RAYMOND PA-C Service: ? Author Type: Physician Avionics Supervisor Type: H&P Filed: 10/30/2023 09:11 Note Text: HISTORY AND PHYSICAL EXAMINATION SERVICE DATE: 10/25/2023 SERVICE TIME: 9:11 AM PRIMARY CARE PHYSICIAN: Mirela White MD Assessment There is no known pertinent medical condition which may affect cate-operative course Hernández Activity Status Index: METS: Climb a flight of stairs or walk up a hill (5.50 METs) DASI Score: 5.5 Patient denies any chest pain or undue shortness of breath with the above physical activity. Clinical Frailty Scale: 2. Well STOP-Bang Score: Snores loudly Patient over 50 years old Male patient Denies feeling tired, fatigued, or sleepy during the daytime Has not been observed to stop breathing or choking/gasping during sleep Denies having high blood pressure BMI less than or equal to 35 kg/m2 Does not have a large neck STOP-Bang Score: 3 [id number] Score: Age: <65 Sex: male CHF history: No Hypertension history: No Stroke/TIA/thromboemb olism history: No Vascular disease history: No Diabetes history: No [id number] Score: 0 ANESTHESIA FINDINGS: Intubation History: No prior intubation Significant Anesthesia Considerations: none Airway History: No prior intubation I - PHYSICAL EVALUATION AIRWAY Patient intubated: No. Tracheostomy tube not present Mallampati: III. TM distance: >3 FB. Neck ROM: full ROM without neurological symptoms. Mouth opening: adequate. Short neck: no. Thick neck: no Lip Bite Test: I Microretrognathia/Ronald ronagthia/Recessed Chin: No DENTAL Dental findings: teeth intact. II - ANESTHESIA PLAN Beta Millicent Monitoring Plan Post Procedure Analgesic Plan Prepared for Surgery: optimally prepared for surgery, pending [see comment]. Labs and EKG ordered by surgeon will review results CONSULTS: Patient does not require consults for optimization at this time Planned Anesthetic: The Following Tests/Procedures Have Been Initiated: No orders of the defined types were placed in this encounter. This is a virtual visit using Jooix video visit. It required patient-provider interaction for the medical decision making as documented below. REASON FOR VISIT: Sukh Adler is a 53 year old male who is scheduled for Procedure(s): LAPAROSCOPIC HERNIORRHAPHY, INGUINAL INITIAL (Left) at the request of Dr. Kayce Velazquez for consultation. My final recommendation will be communicated back to the requesting physician by way of shared medical record or letter. Subjective The patient has the following: ACTIVE PROBLEM LIST Osteoarthritis of Left Hip Osteoarthritis Resulting From Right Hip Dysplasia Primary Osteoarthritis of Right Hip Varicocele Tinnitus of Both Ears COVID-19 Immunization Status Overdue - Covid-19 Vaccine () Overdue since 02/10/2023 04/12/2021 Outside Immunization: COVID-19, mRNA, LNP-S, PF, 100mcg/0.5mL Dose 09/04/2020 Outside Immunization: COVID-19, mRNA, LNP-S, PF, 100mcg/0.5mL Dose 08/05/2020 Outside Immunization: COVID-19, mRNA, LNP-S, PF, 100mcg/0.5mL Dose Only the first 3 history entries have been loaded, but more history exists. CHIEF COMPLAINT: Surgery HPI: Patient is a 53 year old male presenting for upcoming left inguinal hernia repair. Denies pain at this time but occasionally has to manually reduce it. Recommended for surgery and elected to proceed. This is a virtual visit. The visit was conducted using Jooix video visit. It required patient-provider interaction for the medical decision making as documented below. I have communicated my name and active licensure. The patient's identity and physical location were verified at the time of this visit. Either the patient or their legal manufacturing sales representative has been informed of the risks and benefits of and alternatives to treatment through a remote evaluation and consents to proceed with the evaluation remotely. REVIEW OF SYSTEMS: General: No weight loss, malaise or fevers. Neurological: Negative for: impaired sensorium, seizures, TIA and strokes. Respiratory: Negative for: asthma, COPD, current cough, home oxygen, pneumonia within 6 weeks, URI < 2 weeks and obstructive sleep apnea. Cardiovascular: Negative for: AICD/PPM, CAD, chest pain, DVT/PE and murmur/valvular heart disease. GI: Negative for: abdominal pain, liver disease and nausea. : Negative for: dysuria, frequent urination, hematuria and renal failure. Endocrine: Negative for: hypothyroidism and steroid for chronic problem. Hematology: Negative for: anemia, bruises/bleeds easily and chronic anti-coagulation/plat elet meds. Oncology: No history of CA metastasis, chemo within 30 days, or radiotherapy within 90 days. No history of oncological symptoms or problems. Psych: No history of psychiatric symptoms or problems. Musculoskeletal: Negative for: swelling. Skin: Negative (more content not included)... Normal [facility] Iron and Iron binding capaci ty panelon 10-25-2023 Iron [Mass/Vol] 110 ug/dL Normal 41-186 [facility] Comment on above: Order Comment: Speci men Type: BLOOD SPECIMENOrdering Facility: [facility] Address: [address] [place] [address] Performed By: #### 5 0190-8, 65032-6, 4 ####[facility] LABCLIA [id number] [place] [id number] [place] Iron binding capacity [Mass/Vol] 282 ug/dL Normal 232-386 [facility] Comment on above: Order Comment: Speci men Type: BLOOD SPECIMENOrdering Facility: [facility] Address: [address] [place] [address] Performed By: #### 5 0190-8, 95414-3, 2275-09 ####[facility] LABCLIA [id number] [place] [id number] [place] Iron/TIBC [Molar ratio] 39.0 % Normal 15.0-57.0 [facility] Comment on above: Order Comment: Speci men Type: BLOOD SPECIMENOrdering Facility: [facility] Address: [address] [place] [address] Performed By: #### 5 0190-8, 95121-0, 2275-09 ####[facility] LABCLIA [id number] [place] [id number] [place] PT panel Coag (PPP)on 2023 INR Coag (PPP) [Relative time] 1.0 {INR} Normal 0.9-1.3 [facility] Comment on above: Order Comment: Kanwali men Type: BLOOD SPECIMENOrdering Facility: [facility] Address: [address] [place] [address] Result Comment: Lauren min K Antagonist (VKA) Therapeutic Range: INR 2 to 3 (Target INR of 2.5) Note: For patients treated with VKA drugs, such as warfarin, the [place] [employer] 2012 Guideline recommends a therapeutic INR range of 2 to 3 (target INR of 2.5). This recommendation includes high-risk patients with antiphospholipid syndrome with previous arterial or venous thromboembolism, current-generation mechanical or bioprosthetic aortic heart valve replacement. Note: Patients with mechanical aortic valve replacement and additional risk factors for thromboembolic events (atrial fibrillation, previous thromboembolism, LV dysfunction, hypercoagulable conditions) or an older generation mechanical AVR (i.e., ball in-Cage) or any mechanical MVR should have a INR therapeutic range of 2.5 to 3.5 (target INR of 3). Neri GH, et al. Chest 2012, 141:7S-47S Jeferson RA, et al. [facility] 2017, 70: 252-289 Performed By: #### 1 4979-9, 01123-9 ####[facility] LABCLIA [id number] [place] [address] [place] PT Coag (PPP) [Time] 10.9 s Normal 9.7-13.0 [facility] Comment on above: Order Comment: Speci men Type: BLOOD SPECIMENOrdering Facility: [facility] Address: [address] [place] [address] Performed By: #### 1 4979-9, 93455-4 ####[facility] LABCLIA [id number] [address] [place] TYPE AND SCREEN,30 DAYon ABO O Normal [facility] Comment on above: Order Comment: Speci men Type: BLOOD SPECIMENOrdering Facility: [facility] Address: [address] [place] [address] Performed By: #### T SCR30 ####[facility] BLOOD BANKCLIA [id number] [place] [address] [place] HISTORICAL AB SCR STATUS Negative Normal [facility] Comment on above: Order Comment: Speci men Type: BLOOD SPECIMENOrdering Facility: [facility] Address: [address] [place] [address] Performed By: #### T SCR30 ####[facility] BLOOD BANKCLIA [id number] [id number] [place] Rh Nom (Bld) Negative Normal [facility] Comment on above: Order Comment: Speci men Type: BLOOD SPECIMENOrdering Facility: [facility] Address: [address] [place] [address] Performed By: #### T SCR30 ####[facility] BLOOD BANKCLIA [id number] [address] aPTT PPPon 10-25-2023 aPTT Coag (PPP) [Time] 29.1 s Normal 23.0-32.4 Cl [facility] Comment on above: Order Comment: Speci men Type: BLOOD SPECIMENOrdering Facility: [facility] Address: [address] [place] [address] Performed By: #### 1 4979-9, 82676-7 ####[facility] LABCLIA [id number] [address] CNPNon 09-27-2023 CNPN Telephone (OTOLWI) SUKH ADLER ([id number]) 1970 M Date Time Provider Department 09/27/23 SUKH CAO OTBABAK During your visit today, we recorded the following information about you: uSkh Cao MD 09/27/2023 5:52 PM Signed Discussed MRI findings Recommend observation with repeat MRI in 6 months Regarding the tinnitus, we will switch him to amitriptyline and he will inform me in one month Allergies As of Date: 09/27/2023 (No Known Allergies) Date Reviewed: 09/22/2023 Reviewed by: Cassidy Cook OCCA - Fully Assessed Primary Visit Diagnosis: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 - ibuprofen (MOTRIN) 800 mg tablet TAKE 1 TABLET BY MOUTH EVERY 8 HOURS NEEDED FOR 7 DAYS WITH FOOD OR MILK - magnesium oxide 400 mg magnesium tab Take 400 mg by mouth once daily. - vitamin b complex tab Take 1 tablet by mouth once daily. Problem List As Of Date 09/27/2023 Noted Resolved Osteoarthritis of left hip [M16.12] 03/22/2023 Osteoarthritis resulting from right hip dysplas*03/22/2023 Primary osteoarthritis of right hip [M16.11] 03/22/2023 Varicocele [I86.1] 09/20/2016 Prescriptions ordered this encounter Disp Refills Start End AMITRIPTYLINE 10 MG TABLET 30 t* 1 09/27/2023 11/26/2023 Route: ORAL Sig: Take 1 tablet by mouth daily at bedtime. Encounter Status:[facility] SUKH ADLER ([id number]) 1970 M Date Time Provider Department 09/22/23 12:30 PM RACHEL ONTIVEROS During your visit today, we recorded the following information about you: Weight Height 87.1 kg 1.753 m Rachel Ontiveros MD 09/22/2023 2:00 PM Signed Established Patient Ortho Hip Consult Note ASSESSMENT AND PLAN: Impression: Bilateral Hip Severe Degenerative Osteoarthritis, Primary , Right worse than left He was previously scheduled for surgery with Dr. Morin on 08/28. This was ultimately cancelled because the patient was unsure he was ready to move forward with surgery. He wanted to have more information and wanted to do some more research. He had phone call with Dr. Chase and was recommended to see us for further consultation. Pain location: Groin and anterior thigh pain on bilateral legs. This is worse on the right. His range of motion is also worse on the right when compared to the left. He has pain with most activities. Pain with walking, stairs, getting in and out of the car, getting dressed. He also is not able to get his leg up and over onto his motorcycle. Therapy to date - Ice or Heat: ice OTC/Rx Medications (Topical/PO): Meloxicam in the past with very minimal relief -- tooth issue is causing him to take 800 mg ibuprofen that is helping him some the past 3 days. He is due to have 2 root canals - October 17. Brace/Splint: none Assist Device: none Physical Therapy: None formally, he is active and completes his own exercises Injections: He has had 2 injections first lasting 3 months with near complete resolution of symptoms. The injection this past March and he got a couple weeks of relief and it was incomplete. Last injection was about 2 months ago Surgery: none Recent BMI: 26.88 PMHx: Otherwise healthy Denies any medical conditions with heart, lung, kidneys or diabetes Home Situation: He has a 2 year old and 5 year old. He wants to move to his place in [place] soon when he retires. 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 Morin's team. He is here today as a third opinion, having previously scheduled surgery with Dr. Morin but then needing to cancel because of anxiety and concerns about which procedure he should choose. He then met with Dr. Chase, and it is now seeing our team. This entire session was spent counseling, going through the differences between a total hip replacement and hip resurfacing arthroplasty. We have talked through the differences in recovery, approach utilized, restrictions, and national registry data. We have also gone through concerns for metallosis and discussed the differences between a Abrams hip resurfacing and other products that have been taken off the market due to high failure rates. We have talked about metallurgy and design/geometry of the implants. Ultimately, I do not feel that a total hip replacement is a bad option, and I think that both a hip resurfacing arthroplasty and total hip replacement are reasonable to consider. With that said, he is young, he rides motorcycles, and he wants to be active with his young children. A Abrams hip resurfacing makes a lot of sense, so long as he is not overwhelmed by the anxiety of the small theoretical risk of a metallosis reaction. He seems to be a fairly anxiety ridden individual, and I want to make sure that what ever choice he decides is the least detrimental to his overall anxiety. At present, it seems as if he is still leaning toward a hip resurfacing arthroplasty. He is in excellent hands with Dr. Morin, or my practice would be happy to take care of him as well. He has an upcoming root canal at the end of October 2023, and has plans to spend the summer in [place]. He is thinking he would like to return to [place] and have this operation completed at the end of January or sometime in February 2024. We are generally scheduling 6-8 weeks out, and I would like to see him back in the office to sign a consent. I would be happy to save a date for him should he communicate with us via telephone or MyChart. If he did choose a total hip replacement, I would likely pursue a Microplasty + G7. I spent a total of 30 minutes on the date of the service which included [id number] patient care, completing clinical documentation, obtaining and/or reviewing separately obtained history, performing a medically appropriate examination, counseling and educating the patient/family/caregi zakia, independently interpreting results (not separately reported), and communicating results to the patient/family/caregi zakia. The counseled portion is de (more content not included)... Normal [facility] MR Brain WO and W contrast I Jorge 09-22-2023 IMPRESSION: Punctate focus of enhancement in the fundus of the right IAC suspicious for a vestibular schwannoma. Otherwise normal MRI of the brain and skull base. Marble Cutter Operator: PSCB Transcribe Date/Time: Sep 22 2023 9:43A Dictated by : SAMANTHA DAILY MD This examination was interpreted and the report reviewed and electronically signed by: SAMANTHA DAILY MD on Sep 22 2023 9:46AM [facility] DIVISION OF RADIOLOGY * * *Final Report* * * DATE OF EXAM: Sep 22 2023 9:27AM [facility] 0295 - MRI BRAIN WO/W IVCON / PROCEDURE REASON: Sensorineural hearing loss (SNHL) of both ears * * * * Physician Interpretation * * * * MRI BRAIN AND SKULL BASE WITHOUT AND WITH CONTRAST. History: 53 year old patient with bilateral tinnitus worse on the left side.. Technique: Brain: Diffusion, axial FLAIR, postcontrast axial T1. Skull base: Axial CISS through the skull base, pre and postcontrast fat-saturated high-resolution T1 through the skull base with coronal reconstructions. . MQ: MRBWOW_2 Contrast: 17 mL Dotarem IV No comparisons. RESULTS: There is a subtle punctate focus of enhancement in the fundus of the right IAC (series 8 images 40-42). This is suspicious for small vestibular schwannoma. Left IAC and bilateral CP angle cisterns are normal in appearance. There is no pathologic enhancement in the cochlea on either side. High-resolution CISS images the inner ear structures are symmetric and normal in morphology. The visualized portions of Meckel's caves and the cavernous sinuses are normal. The basilar trunk is patent by spin echo criteria. The supratentorial brain is normal. There are scattered foci of increased signal in the deep white matter which most likely represent chronic small vessel ischemic changes. There is no hydrocephalus or midline shift. The paranasal sinuses and mastoid air cells are grossly clear. There is no restricted diffusion. DIVISION OF RADIOLOGY Provider, [facility] - 09/22/2023 * * *Final Report* * * DATE OF EXAM: Sep 22 2023 9:27AM [address] 0295 - MRI BRAIN WO/W IVCON / PROCEDURE REASON: Sensorineural hearing loss (SNHL) of both ears * * * * Physician Interpretation * * * * MRI BRAIN AND SKULL BASE WITHOUT AND WITH CONTRAST. History: 53 year old patient with bilateral tinnitus worse on the left side.. Technique: Brain: Diffusion, axial FLAIR, postcontrast axial T1. Skull base: Axial CISS through the skull base, pre and postcontrast fat-saturated high-resolution T1 through the skull base with coronal reconstructions. . MQ: MRBWOW_2 Contrast: 17 mL Dotarem IV No comparisons. RESULTS: There is a subtle punctate focus of enhancement in the fundus of the right IAC (series 8 images 40-42). This is suspicious for small vestibular schwannoma. Left IAC and bilateral CP angle cisterns are normal in appearance. There is no pathologic enhancement in the cochlea on either side. High-resolution CISS images the inner ear structures are symmetric and normal in morphology. The visualized portions of Meckel's caves and the cavernous sinuses are normal. The basilar trunk is patent by spin echo criteria. The supratentorial brain is normal. There are scattered foci of increased signal in the deep white matter which most likely represent chronic small vessel ischemic changes. There is no hydrocephalus or midline shift. The paranasal sinuses and mastoid air cells are grossly clear. There is no restricted diffusion. IMPRESSION IMPRESSION: Punctate focus of enhancement in the fundus of the right IAC suspicious for a vestibular schwannoma. Otherwise normal MRI of the brain and skull base. Marble Cutter Operator: PSCB Transcribe Date/Time: Sep 22 2023 9:43A Dictated by : SAMANTHA DAILY MD This examination was interpreted and the report reviewed and electronically signed by: SAMANTHA DAILY MD on Sep 22 2023 9:46AM EST [facility] Radiology Study observation (narrative) [facility] MR Brain WO and W contrast I VOrdered By: Ccf Provider on 09-22-2023 [facility] MRI BRAIN WO/W IVCONon 09-21 MRI BRAIN WO/W IVCON * * *Final Report* * * DATE OF EXAM: Sep 22 2023 9:27AM [facility] 0295 - MRI BRAIN WO/W IVCON / PROCEDURE REASON: Sensorineural hearing loss (SNHL) of both ears * * * * Physician Interpretation * * * * MRI BRAIN AND SKULL BASE WITHOUT AND WITH CONTRAST. History: 53 year old patient with bilateral tinnitus worse on the left side.. Technique: Brain: Diffusion, axial FLAIR, postcontrast axial T1. Skull base: Axial CISS through the skull base, pre and postcontrast fat-saturated high-resolution T1 through the skull base with coronal reconstructions. . MQ: MRBWOW_2 Contrast: 17 mL Dotarem IV No comparisons. RESULTS: There is a subtle punctate focus of enhancement in the fundus of the right IAC (series 8 images 40-42). This is suspicious for small vestibular schwannoma. Left IAC and bilateral CP angle cisterns are normal in appearance. There is no pathologic enhancement in the cochlea on either side. High-resolution CISS images the inner ear structures are symmetric and normal in morphology. The visualized portions of Meckel's caves and the cavernous sinuses are normal. The basilar trunk is patent by spin echo criteria. The supratentorial brain is normal. There are scattered foci of increased signal in the deep white matter which most likely represent chronic small vessel ischemic changes. There is no hydrocephalus or midline shift. The paranasal sinuses and mastoid air cells are grossly clear. There is no restricted diffusion. IMPRESSION: Punctate focus of enhancement in the fundus of the right IAC suspicious for a vestibular schwannoma. Otherwise normal MRI of the brain and skull base. Marble Cutter Operator: OLI Transcribe Date/Time: Sep 22 2023 9:43A Dictated by : SAMANTHA DAILY MD This examination was interpreted and the report reviewed and electronically signed by: SAMANTHA DAILY MD on Sep 22 2023 9:46AM EST [id number] N Normal [facility] XR HIP 2V AP/LAT RTon 2023 XR HIP 2V AP/LAT RT * * *Final Report* * * DATE OF EXAM: Sep 22 2023 11:59AM [address]OX [id number] - XR HIP 2V AP/LAT RT / PROCEDURE REASON: Primary osteoarthritis of right hip * * * * Physician Interpretation * * * * HIP RADIOGRAPHS - RIGHT HISTORY: Primary osteoarthritis of right hip TECHNOLOGIST PROVIDED HISTORY (if applicable): pre-op right hip TECHNIQUE: XR HIP 2V AP/LAT RT COMPARISON: Radiographs 07/14/2023 RESULT: Lateral standing and seated radiographs were performed for preoperative planning. Marble Cutter Operator: [facility] SYSTEM[facility]ini Transcribe Date/Time: Sep 22 2023 12:32P Dictated by : LEEANN KRISHNAN MD This examination was interpreted and the report reviewed and electronically signed by: LEEANN KRISHNAN MD on Apr 12 2024 12:33PM EST [id number] N Normal [facility] [place] XR Hip - right AP and Latera azeem 09-22-2023 [facility] CNOVon 08-07-2023 CNOV Office Visit (CHEVY ) SUKH ADLER ([id number]) 1970 M Date Time Provider Department 08/07/23 2:30 PM QUOC GARICA During your visit today, we recorded the following information about you: Temperature Pulse Blood pressure Weight 97.7 degrees 63/minute 141/71 82.6 kg Height 1.753 m Lou Augustin Ma 08/07/2023 2:42 PM Signed Intake information documented in the prior visit with Dr. Cao today. Felipa Mckeon MD 08/07/2023 4:45 PM Signed [facility] - HISTORY AND PHYSICAL Chief Complaint: Left sided inguinal hernia HPI: Sukh Adler is a 53 year old male with no significant past medica history who presents with a new left sided inguinal hernia. Patient states that he started feeling a bulge around 6 months ago. This started to slowly grow in size and he saw his local physician for it. Recommended to see a surgeon. He is able to reduce the hernia, it is soft and rarely tender. No nausea or vomiting. No history of bowel obstructions. Relevant previous operations include: No past abdominal surgical history. No history of Psychiatric Disorders or Opioid Use Independent Heavy or very physical labor None No Significant Comorbidities N/A No past medical history on file. No past surgical history on file. Additional social history not relevant to the patient's HPI No family history on file. Additional family history not relevant to the patient's HPI ALLERGIES Not on File Current Outpatient Medications Medication Sig Dispense Refill magnesium oxide 400 mg magnesium tab Take 400 mg by mouth once daily. 30 tablet 1 vitamin b complex tab Take 1 tablet by mouth once daily. 30 tablet 1 No current facility-administered medications for this visit. REVIEW OF SYSTEMS GENERAL: No weight loss, malaise or fevers. RESPIRATORY: Negative for cough, hemoptysis, wheezing, COPD, dyspnea or shortness of breath CARDIOVASCULAR: Negative for chest pain, leg swelling, hypertension, CHF or palpitations GI: No nausea, vomiting, or diarrhea : No history of dysuria, frequency or incontinence MUSCULOSKELETAL: Degenerative joint disease HEMATOLOGY/LYMPHOLOGY : Negative for prolonged bleeding, bruising easily or swollen nodes. ENDOCRINE: Negative for cold or heat intolerance, polyuria or polydipsia. The remainder of the 12 review of systems is negative other than what was mentioned in the HPI and above. BP 141/71 Pulse 63 Temp 36.5 ?C (97.7 ?F) (Temporal) Ht 175.3 cm (5' 9 ) Wt 82.6 kg (182 lb) BMI 26.88 kg/m? Physical findings of this patient are as follows (COMPLETE 10 INCLUDING HEART AND LUNG EXAM OR CHOOSE NORMAL EXAM IF APPROPRIATE): Physical Exam Physical Exam Constitutional: The patient is well-developed, well-nourished, and in no distress. Head: Normocephalic and atraumatic. Eyes: Pupils are equal, round, and reactive to light. EOM are normal. Neck: Normal range of motion. Neck supple. Cardiovascular: Regular rhythm and normal heart sounds. Pulmonary/Chest: Effort normal and breath sounds normal. Abdominal: Soft. Non distended, non tender, left sided inguinal defect palpated, hernia reduced at the time Musculoskeletal: Normal range of motion. Neurological: He is alert. GCS score is 15. Skin: Skin is warm and dry. Psychiatric: Affect and judgment normal. Assessment: Sukh Adler is a 53 year old male who presents with a left sided inguinal hernia. Plan: Lap left inguinal hernia repair, consented Felipa Mckeon MD General Surgery (Res) August 07, 2023, 3:02 PM P: [id number] Quoc Garcia MD 08/07/2023 4:45 PM Signed I have seen and evaluated the patient and discussed the case with the resident physician. I agree with the assessment and plan as documented in the resident?s note. Sukh Adler is a 53 year old male here for evaluation of a(n) L inguinal hernia. Prior surgical history is significant for no major abdominal surgery. Other significant comorbidities include bilateral OA of the hips. On exam, there is a reducible LIH. Plan is for lap LIH repair with mesh. Patient consented for study? Yes STUDY TITLE: No Opioids vs Minimal Opiods for Inguinal Hernia IRB NO.: #[id number] CRITICAL CARE UNIT MANAGER: Humza Vang MD COORDINATOR/Research Nurse/Coordinator Integrated Marketing: Kayce Swanson MD Phone/email: , [email or web address] Consenting was performed by the attending surgeon, in a lcab-iv-lnee manner, during preoperative evaluation at the General Surgery clinic. The study protocol was discussed in detail with the patient. All study procedures were explained to the subject, including randomization, the two possible study interventions for all patients participating in the study. The importance of follow up compliance was stressed. The risks, benefits, alternatives to participation and potent (more content not included)... Normal [facility] CNOV Office Visit (OTOLMN ) VITORSUKH ([id number]) 1970 M Date Time Provider Department 08/07/23 1:30 PM SUKH CAO OTOLMN During your visit today, we recorded the following information about you: Soheila Jarvis RN 08/07/2023 1:42 PM Signed Tobacco Use: Not on file Was smoking cessation packet given? N/A - Patient is a non-smoker or quit >1 year ago. Was a referral initiated?N/A Patient is a non-smoker Sukh Cao MD 08/07/2023 2:53 PM Signed SECTION OF OTOLOGY, NEUROTOLOGY AND LATERAL SKULL BASE SURGERY [facility], [facility] History History of Present Illness: Sukh Adler is a 53 year old male who presents complaining of bilateral tinnitus. More on the left Started about 2-3 years ago High pitched, non pulsatile Continuous, significantly affecting his quality of life Modulates with clenching his jaw No past medical history on file. No past surgical history on file. No current outpatient medications on file prior to visit. No current facility-administered medications on file prior to visit. ALLERGIES Not on File No family history on file. Physical Exam Patient is alert, oriented Head examination: normocephalic Binocular microscopic examination of ears: Right ear: Pinna: normal External canal : patent Tympanic membrane:normal Left ear: Pinna: normal External canal : patent Tympanic membrane :normal Tuning [place] Examination [place] midline Right ear Rinne Positive Left ear Rinne Positive CN VII: Face is symmetric with normal eye closure and smile. Test Results Audiogram AND Tympanogram (personally reviewed) WRS AD: 100 % : 100 % Assessment and Plan Sukh Adler's history, physical examination, and diagnostic studies are consistent with the following diagnoses and associated treatment plan of care. Sensorineural hearing loss (SNHL) of both ears - MRI BRAIN WO/W IVCON; Future Asymmetrical sensorineural hearing loss Tinnitus of both ears - [facility]IT[facility]EMENT [facility]; Future Other orders - magnesium oxide 400 mg magnesium tab; Take 400 mg by mouth once daily. - vitamin b complex tab; Take 1 tablet by mouth once daily. We discussed obtaining an MRI for the asymmetry. I have encouraged him to reduce caffeine and start magnesium and vitamin B supplementation. I have also placed a referral to the tinnitus management clinic I have answered all of his questions. Signed by: Sukh Cao MD, FACS Section Head, Otology-Neurotology Tugboat Dispatcher, Hearing Implant Program [facility] Medical Decision Making: Problems: Moderate: 1+ chronic illnesses with change Data: Unique test result(s) reviewed: 1 Unique test(s) ordered: 1 Risk: Low: Low risk from testing/treatment Medical Decision Making Level: 3 - Low Referring Provider: SELF [200] Allergies As of Date: 08/07/2023 (Not on File) Date Reviewed: 08/07/2023 Reviewed by: Lou Augustin Ma - Fully Assessed Reason for Visit: Ear Problem [38] Cmt: Worsening in the last 6 months Primary Visit Diagnosis:Sensorineur al hearing loss (SNHL) of both ears [H90.3] Other Visit Diagnoses:Asymmetrica l sensorineural hearing loss [H90.3] Tinnitus of both ears [H93.13] Order(s):magnesium oxide 400 mg magnesium tabTake 400 mg by mouth once daily.Disp: 30 tabletRfl: 1 vitamin b complex tabTake 1 tablet by mouth once daily.Disp: 30 tabletRfl: 1 [facility] [[id number]] Order #: [id number]: 1 FUTURE MRI BRAIN WO/W IVCON [[id number]] Order #: [id number] FUTURE Prescriptions as of 08/07/2023 - magnesium oxide 400 mg magnesium tab Take 400 mg by mouth once daily. - vitamin b complex tab Take 1 tablet by mouth once daily. Problem List As Of Date 08/07/2023 Noted Resolved Osteoarthritis of left hip [M16.12] 03/22/2023 Osteoarthritis resulting from right hip dysplas*03/22/2023 Primary osteoarthritis of right hip [M16.11] 03/22/2023 Varicocele [I86.1] 09/20/2016 Visit Notes: >> oSheila Jarvis RN Mon Aug 07, 2023 1:42 PM Status: Signed Tobacco Use: Not on file Was smoking cessation packet given? N/A - Patient is a non-smoker or quit >1 year ago. Was a referral initiated?N/A Patient is a non-smoker Prescriptions ordered this encounter Disp Refills Start End MAGNESIUM 400 MG ( MAGNESIUM OXIDE* 30 t* 1 08/07/2023 10/06/2023 Route: ORAL Sig: Take 400 mg by mouth once daily. VITAMIN B COMPLEX TABLET 30 t* 1 08/07/2023 10/06/2023 Route: ORAL Sig: Take 1 tablet by mouth once daily. Level of Service: OFFICE/OUTPATIENT [facility] 30 MINUTES [[id number]] Disposition: Return in about 2 months (around 10/06/2023). Follow-up and Disposition History for Encounter Date Provider Department Center 08/07/2023 [id number] CAO A Bldg Encounter Status:Closed by SUKH CAO on 08/07/23 Normal [facility] Office Visit (CDISMN ) SUKH ADLER ([id number]) 1970 M Date Time Provider Department 08/07/23 1:[address] [facility] During your visit today, we recorded the following information about you: Karime Streeter AUD 08/07/2023 2:27 PM Signed [facility] AUDIOLOGIC EVALUATION REPORT Name: Sukh Adler [facility]#: [id number] Date of Service: 08/07/2023 Date of : 1970 Age: [age] year old Referred by: Sukh Cao MD Referred for: Evaluation of suspected change in hearing, tinnitus, or balance. Referral documented: In an order in [facility] Patient's major complaints: Tinnitus in both ears Sukh Adler was seen for an initial audiologic evaluation reporting bilateral tinnitus. Patient reported tinnitus is constant and has been present for the last two years. He reported onset occurred during a period of high emotional stress in his life (his father was ill and hospitalized long-term) and he wonders if this could have been an exacerbating factor. Patient also reported that he is able to modulate the tinnitus with jaw movements and when clenching his teeth. He denied any changes in tinnitus with neck movements, as well as any concerns for issues with the neck or cervical spine. 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 Patient also denied otalgia, otorrhea, aural fullness/pressure, dizziness/vertigo, history of otologic surgery, and ototoxicity. See procedures tab for audiometric results. IMPRESSIONS RIGHT EAR: Sensorineural hearing loss, greater in the right ear than the left ear. LEFT EAR: Sensorineural hearing loss AUDIOLOGIC EVALUATION Following is a brief interpretation of the obtained findings from the audiologic evaluation. Refer to the Auditory Test Record for complete audiometric results. The patient was counseled about the test findings and appropriate audiologic recommendations were made. SUMMARY: See procedures tab for audiometric results. OTOSCOPY RIGHT EAR: Otoscopic inspection revealed ear canal was clear with an identifiable cone of light. LEFT EAR: Otoscopic inspection revealed ear canal was clear with an identifiable cone of light. TYMPANOMETRY Description of procedure: This test is an objective evaluation of middle ear function. CPT code: 36312 RIGHT EAR: Normal ME function. LEFT EAR: Normal ME function. ACOUSTIC REFLEXES Description of procedure: This test is an objective measure of auditory and facial nerve pathways. CPT code: 62527, 42336 RIGHT EAR PROBE EAR: (ipsi right stimulus ear; contralateral left stimulus ear): Acoustic Reflex Pattern Ipsilateral acoustic reflexes were absent at 500-2000 Hz. Contralateral acoustic reflexes were absent at 500-2000 Hz. Acoustic Reflex Decay (left stimulus ear): Did not test. LEFT EAR PROBE EAR: (ipsi left stimulus ear; contralateral right stimulus ear): Acoustic Reflex Pattern Ipsilateral acoustic reflexes present WNL for 500-2000 Hz. Contralateral acoustic reflexes present WNL for 500-2000 Hz. Acoustic Reflex Decay (right stimulus ear):Did not test. Of note, this pattern is consistent with possible facial nerve (CN VII) involvement of the right ear. PURE TONE AUDIOMETRY AND SPEECH TESTING Description of procedure: This test is an objective evaluation hearing sensitivity via air and bone conduction and speech recognition testing. CPT code:61832 RIGHT EAR: Hearing Sensitivity: Essentially within normal limits with mild sensorineural notch noted at 4000 Hz, however significant sensorineural asymmetry noted from 250-1000 Hz. Word Recognition Score: Excellent (100%). WRS is consistent with hearing sensitivity. Words were presented at 60 dB HL is above (greater than or equal to 60 dB HL) intensity level for average conversational speech. The NU-6 Ordered by Difficulty Word List (10 words) was used for testing. Contralateral masking was employed. LEFT EAR: Hearing Sensitivity: Within normal limits through 2000 Hz sloping to mild sensorineural notch at 4000 Hz rising back to within normal limits. Word Recognition Score: Excellent (100%). WRS is consistent with hearing sensitivity. Words were presented at 50 dB HL which approximates (45-55 dB HL) intensity level for average conversational speech. The NU-6 Ordered by Difficulty Word List (10 words) was used for testing. Contralateral masking was employed. RECOMMENDATIONS * Continue medical follow-up with Sukh Cao MD. * Proceed with imaging as recommended by Sukh Cao MD. * Pending medical clearance, patient would likely benefit from use of amplification. * If interested, patient would be a candidate to participate in the [facility]. Call [phone] ext [phone] to schedule an appointment in the [facility] Educational Session following medical clearance. * If not interested in [facility], consider scheduled Tinnitus Aubrie (more content not included)... Normal [facility] HISTORY PHYSICALon 02-26-202 4 HISTORY PHYSICAL HNO ID: [id number] Author: FELIPA MCKEON MD Service: ? Author Type: Resident Type: H&P Filed: 08/07/2023 16:45 Note Text: [facility] Abdominal [facility] - HISTORY AND PHYSICAL Chief Complaint: Left sided inguinal hernia HPI: Sukh Adler is a 53 year old male with no significant past medica history who presents with a new left sided inguinal hernia. Patient states that he started feeling a bulge around 6 months ago. This started to slowly grow in size and he saw his local physician for it. Recommended to see a surgeon. He is able to reduce the hernia, it is soft and rarely tender. No nausea or vomiting. No history of bowel obstructions. Relevant previous operations include: No past abdominal surgical history. No history of Psychiatric Disorders or Opioid Use Independent Heavy or very physical labor None No Significant Comorbidities N/A No past medical history on file. No past surgical history on file. Additional social history not relevant to the patient's HPI No family history on file. Additional family history not relevant to the patient's HPI ALLERGIES Not on File Current Outpatient Medications Medication Sig Dispense Refill magnesium oxide 400 mg magnesium tab Take 400 mg by mouth once daily. 30 tablet 1 vitamin b complex tab Take 1 tablet by mouth once daily. 30 tablet 1 No current facility-administered medications for this visit. REVIEW OF SYSTEMS GENERAL: No weight loss, malaise or fevers. RESPIRATORY: Negative for cough, hemoptysis, wheezing, COPD, dyspnea or shortness of breath CARDIOVASCULAR: Negative for chest pain, leg swelling, hypertension, CHF or palpitations GI: No nausea, vomiting, or diarrhea : No history of dysuria, frequency or incontinence MUSCULOSKELETAL: Degenerative joint disease HEMATOLOGY/LYMPHOLOGY : Negative for prolonged bleeding, bruising easily or swollen nodes. ENDOCRINE: Negative for cold or heat intolerance, polyuria or polydipsia. The remainder of the 12 review of systems is negative other than what was mentioned in the HPI and above. BP 141/71 Pulse 63 Temp 36.5 ?C (97.7 ?F) (Temporal) Ht 175.3 cm (5' 9 ) Wt 82.6 kg (182 lb) BMI 26.88 kg/m? Physical findings of this patient are as follows (COMPLETE 10 INCLUDING HEART AND LUNG EXAM OR CHOOSE NORMAL EXAM IF APPROPRIATE): Physical Exam Physical Exam Constitutional: The patient is well-developed, well-nourished, and in no distress. Head: Normocephalic and atraumatic. Eyes: Pupils are equal, round, and reactive to light. EOM are normal. Neck: Normal range of motion. Neck supple. Cardiovascular: Regular rhythm and normal heart sounds. Pulmonary/Chest: Effort normal and breath sounds normal. Abdominal: Soft. Non distended, non tender, left sided inguinal defect palpated, hernia reduced at the time Musculoskeletal: Normal range of motion. Neurological: He is alert. GCS score is 15. Skin: Skin is warm and dry. Psychiatric: Affect and judgment normal. Assessment: Sukh Adler is a 53 year old male who presents with a left sided inguinal hernia. Plan: Lap left inguinal hernia repair, consented Felipa Mckeon MD General Surgery (Res) August 07, 2023, 3:02 PM P: [id number] Normal [facility] CNOVon 07-14-2023 CNOV Office Visit (ORTHCO ) SUKH ADLER ([id number]) 1970 M Date Time Provider Department 07/14/23 10:20 AM LEEANN MORIN During your visit today, we recorded the following information about you: Leeann Morin DO 07/14/2023 12:58 PM Signed CONSULT ORTHOPAEDIC: HIP PRIMARY CARE PHYSICIAN: No primary care provider on file. REFERRING PROVIDER: SELF ASSESSMENT AND PLAN Subjective: Patient is relatively healthy 53-year-old male presenting for evaluation of bilateral hip pain, with right much worse than left. Patient has had the symptoms for greater than a year and has been treated in the past with intra-articular injections. He has had 2 injections first lasting 2 months with near complete resolution of symptoms. The last injection was this past March and he got a couple weeks of relief and it was incomplete. He has tried [id number] NSAIDs and meloxicam with minimal relief. He has not tried physical therapy but is still active and performs his own exercises. He denies any low back pain, numbness or tingling in any extremity. Patient is fairly active and would like to maintain this level activity. Patient denies any medical conditions with heart, lung, kidneys or diabetes. Denies tobacco use. Exam: NVI, 0-80 hip flexion, positive Stinchfield, 0 IR 5 ER both with pain in the groin expressed Imaging: XR right hip demonstrating severe osteoarthritis with cam deformity and by polar osteophytes. Subchondral sclerosis about the acetabulum with severe joint space narrowing in the weightbearing portion of the acetabulum. Plan: BHR, ASA Impression: Bilateral Hip Severe Degenerative Osteoarthritis, Primary Diagnoses: (M16.11) Primary osteoarthritis of right hip (primary encounter diagnosis) Based upon the evaluation today and after discussions with Sukh Adler, Sukh Adler has significant, worsening pain at the hip. This pain is increased with activity and weight bearing, and interferes with activities of daily living. These symptoms have continued despite a number of non-surgical measures, including a trial of oral pain medication (for at least 12 weeks). At this point, the patient will not benefit from further PT due to the severity of their condition. The patient's physical examination is consistent with limitations in range of motion, pain with passive range of motion, and an antalgic gait. These examination findings are corroborated by imaging findings of joint space narrowing, periarticular osteophyte formation, and subchondral sclerosis. The patient has been treated by the practice and all reasonable treatments have failed to control the disease, which causes significant pain and limits activities of daily living. The patient has failed conservative treatment and joint replacement surgery was discussed and agreed upon by both provider and patient. The patient has elected to proceed with surgical management to improve function and relieve pain refractory to non-surgical measures: right Ariadna hip resurfacing as evidenced by proximal femoral bone geometry and bone quality are sufficient for hip resurfacing, and the patient would otherwise recieve a conventional primary total hip replacement and six months of unsuccessful non-operative treatment as outlined in the HPI below. We had a lengthy discussion regarding the risk and benefit of surgery, the alternatives, limitations and personnel involved. These included but were not limited to infection, persistent pain, instability, nerve injury, blood clots, and medical complications. We also discussed the pre-operative course, surgery itself and rehabilitation. Cate-operative blood management and transfusion issues were discussed, and options clearly outlined. The patient has consented to the use of the banked allogenic blood if medically necessary. The patient has elected to schedule surgery at this time or intends to call the office with a surgical date. Shared decision making occurred while obtaining informed consent. The patient will be scheduled for a pre-operative education class at which time they will have their nasal swab completed and will be given CHG cloths along with the verbal and written instructions for their use. The patient has been ordered: Office Visit on 07/14/23 XR HIP GENERAL 3V PELV/AP/LAT RIGHT No orders placed today. CONSULTS: IMPACT/PACE Consult for preoperative clearance. Total Joint Arthroplasty: Risk Calculator Sukh Adler has a 2.53% chance of NOT returning home at discharge for a Primary total Hip replacement. Sukh's estimated Length of Stay is 1 day (Outpatient candidate). Sukh's 30 day chance of readmission is 1.04%. Readmission Probability 1.04 % (within 30 days following surgery) Estimated LOS 1 day Discharge Disposition Probability D/C to Home 97.47 % D/C to SNF 2.53 % (more content not included)... Normal [facility] XR HIP 3V PELV+ AP/LAT RTon 07-14-2023 XR HIP 3V PELV+ AP/LAT RT * * *Final Report* * * DATE OF EXAM: Jul 14 2023 10:01AM CRX [id number] - XR HIP 3V PELV+ AP/LAT RT / PROCEDURE REASON: Primary osteoarthritis of right hip * * * * Physician Interpretation * * * * Pelvis and RIGHT hip x-rays: HISTORY: Hip pain. TECHNIQUE: An AP view of the pelvis and AP and lateral views of the RIGHT hip are reviewed. COMPARISON: None RESULT: Osseous structures are intact, without evidence of an acute fracture. There is moderate superolateral RIGHT hip joint space narrowing and prominent femoral head osteophyte formation. Similar degenerative arthrosis of the LEFT hip is demonstrated. IMPRESSION: 1. Advanced degenerative arthrosis of both hips. Marble Cutter Operator: OLI Transcribe Date/Time: Jul 14 2023 10:47A Dictated by : SANDRA DANIELS MD This examination was interpreted and the report reviewed and electronically signed by: SANDRA DANIELS MD on Jul 14 2023 10:48AM EST [id number] Normal [facility] XR HIP GENERAL 3V PELV/AP/LA T RIGHTon 07-14-2023 [facility] XR Pelvis and Hip - right AP and Lateral frogon 07-14-2023 IMPRESSION: 1. Advanced degenerative arthrosis of both hips. Marble Cutter Operator: OLI Transcribe Date/Time: Jul 14 2023 10:47A Dictated by : SANDRA DANIELS MD This examination was interpreted and the report reviewed and electronically signed by: SANDRA DANIELS MD on Jul 14 2023 10:48AM EST DIVISION OF RADIOLOGY * * *Final Report* * * DATE OF EXAM: Jul 14 2023 10:01AM CRX [id number] - XR HIP 3V PELV+ AP/LAT RT / PROCEDURE REASON: Primary osteoarthritis of right hip * * * * Physician Interpretation * * * * Pelvis and RIGHT hip x-rays: HISTORY: Hip pain. TECHNIQUE: An AP view of the pelvis and AP and lateral views of the RIGHT hip are reviewed. COMPARISON: None RESULT: Osseous structures are intact, without evidence of an acute fracture. There is moderate superolateral RIGHT hip joint space narrowing and prominent femoral head osteophyte formation. Similar degenerative arthrosis of the LEFT hip is demonstrated. DIVISION OF RADIOLOGY Provider, [facility]23 * * *Final Report* * * DATE OF EXAM: Jul 14 2023 10:01AM CRX [id number] - XR HIP 3V PELV+ AP/LAT RT / PROCEDURE REASON: Primary osteoarthritis of right hip * * * * Physician Interpretation * * * * Pelvis and RIGHT hip x-rays: HISTORY: Hip pain. TECHNIQUE: An AP view of the pelvis and AP and lateral views of the RIGHT hip are reviewed. COMPARISON: None RESULT: Osseous structures are intact, without evidence of an acute fracture. There is moderate superolateral RIGHT hip joint space narrowing and prominent femoral head osteophyte formation. Similar degenerative arthrosis of the LEFT hip is demonstrated. IMPRESSION IMPRESSION: 1. Advanced degenerative arthrosis of both hips. Marble Cutter Operator: OLI Transcribe Date/Time: Jul 14 2023 10:47A Dictated by : SANDRA DANIELS MD This examination was interpreted and the report reviewed and electronically signed by: SANDRA DANIELS MD on Jul 14 2023 10:48AM EST [facility] Radiology Study observation (narrative) [facility] XR Pelvis and Hip - right AP and Lateral frogOrdered By: Ccf Provider on 07-14-2023 [facility] XR HIP CHELSEA INJon 10-21-2022 XR HIP CHELSEA INJ EXAMINATION: XR HIP CHELSEA INJ HISTORY: Osteoarthritis of bilateral hip joints ; chronic bilateral hip pain and arthritis COMPARISON: No relevant comparison available. FLUOROSCOPY TIME: Fluoro time measures 1.5 minutes and 4 images were obtained. TECHNIQUE: A joint injection was performed in the usual sterile manner after obtaining informed consent. Standard level fluoroscopic mode of operation utilized. FINDINGS: JOINT: Right hip. NEEDLE: 22 gauge, 3.5 spinal needle. MEDICATION: 2cc buffered 1% lidocaine for subcutaneous anesthesia 2cc Omnipaque-300 iodinated contrast to visualize the joint space Mixture of Kenalog 40 mg, 0.5% Bupivacaine 2 mL and Omnipaque 300 3 mL was injected into the joint space. TECHNIQUE: Anterior approach with prior localization of the femoral artery. A single stick was successful in gaining access to the joint space. CLINICAL: Near complete resolution of hip pain following the injection. COMPLICATIONS: None. OTHER: Negative. IMPRESSION: Successful right hip injection with near-complete resolution of right hip pain. JOINT: Left hip. NEEDLE: 22 gauge, 3.5 spinal needle. MEDICATION: 2cc buffered 1% lidocaine for subcutaneous anesthesia 2cc Omnipaque-300 iodinated contrast to visualize the joint space Mixture of Kenalog 40 mg, 0.5% Bupivacaine 2 mL and Omnipaque 300 3 mL was injected into the joint space. TECHNIQUE: Anterior approach with prior localization of the femoral artery. A single stick was successful in gaining access to the joint space. CLINICAL: Near complete resolution of hip pain following the injection. COMPLICATIONS: None. OTHER: Negative. IMPRESSION: Successful left hip injection with near-complete resolution of left hip pain. Electronically authenticated by: JENNIFER MULLINS Date: 2022-10-21 12:14 Normal [facility] COVID-19 Antigenon 2 COVID-19 Antigen Healthcare Worker?: N Reference Range: Negative Negative results, from patients with symptom onset beyond five days, should be treated as presumptive and confirmation with a molecular assay, if necessary, for patient management, may be performed. Negative results do not rule out COVID-19 and should not be used as the sole basis for treatment or patient management decisions, including infection control decisions. Negative results should be considered in the context of a patient's recent exposures, history and the presence of clinical signs and symptoms consistent with COVID-19. The Nba SARS Antigen DIEGO does not differentiate between SARS-CoV and SARS-CoV-2. This test was developed and its performance characteristic determined by [employer] and validated at [facility]. This test has not been FDA cleared or approved. This test has been authorized by FDA under an Emergency Use Authorization (EUA). This test has been validated in accordance with the FDA's Guidance Document (Policy for Diagnostics Testing in Laboratories Certified to Perform High Complexity Testing under CLIA prior to Emergency Use Authorization for Coronavirus Disease-2019 during the Public Health Emergency) issued on September 12, 2019. This test is only authorized for the duration of time the declaration that circumstances exist justifying the authorization of the emergency use of in vitro diagnostic tests for detection of SARS-CoV-2 virus and/or diagnosis of COVID-19 infection under section 564(b)(1) of the Act, 21 U.S.C. 360bbb-3(b)(1), unless the authorization is terminated or revoked sooner. SARS-CoV+SARS-CoV-2 (COVID-19) Ag [Presence] in Respiratory specimen by Rapid immunoassay Negative for SARS Antigen by DIEGO PERFORMED BY: [facility] [address] [place] [address] PATHOLOGIST [employer]TEGRATION DEVELOPER CAMILA NOBLE M.D. [facility] Comment on above: Performed By: #### S OFIANEG, COVID-19 NBA #### [facility] [address] COVID-19 SOFIAOrdered By: Jerald Morgan on 01-19-2022 SARS-CoV+SARS-CoV-2 (COVID-19) Ag IA.rapid Ql (Resp) Negative Negative [facility] Comment on above: This is a duplicate Nba SARS Antigen (DIEGO) result to be used for statistical tracking purpose only. No Panel InformationOrdered By: Mirela Morgan on 01-19-2022 SARS Antigen (LFIA) [facility] Nba Ag Negativeon 01-20-20 22 Nba Ag Negative Negative Normal Negative [facility] Comment on above: Result Comment: This is a duplicate Nba SARS Antigen (DIEGO) result to be used for statistical tracking purpose only. PERFORMED BY: [facility] [address] [place] [address] PATHOLOGIST ENTER[employer]ISE INTEGRATION DEVELOPER CAMILA NOBLE M.D. Performed By: #### S LILIANA ESPITIAID-19 NBA #### [address] Vital Signs Date Time Vital Sign Value Performing Clinician Faci lity 11-13-2023 11:25-0400 Body height 175.3 cm Quoc Garcia MD Work Phone: [facility] 11-13-2023 11:25-0400 Body mass index (BMI) [Ratio] 27.91 kg/m2 Quoc Garcia MD Work Phone: [facility] 11-13-2023 11:25-0400 Body temperature 97.5 [degF] Quoc Garcia MD Work Phone: [facility] 11-13-2023 11:25-0400 Body weight 85.73 kg Quoc Garcia MD Work Phone: [facility] 11-13-2023 11:25-0400 Diastolic blood pressure 70 mm[Hg] Quoc Garcia MD Work Phone: [facility] 11-13-2023 11:25-0400 Heart rate 67 /min Quoc Garcia MD Work Phone: [facility] 11-13-2023 11:25-0400 Systolic blood pressure 144 mm[Hg] Quoc Garcia MD Work Phone: [facility] 10-25-2023 11:00-0400 Body height 172.7 cm [facility] Work Phone: [facility] 10-25-2023 11:00-0400 Body mass index (BMI) [Ratio] 28.89 kg/m2 [facility] Work Phone: [facility] 10-25-2023 11:00-0400 Body weight 86.18 kg [facility] Work Phone: [facility] 09-22-2023 12:08-0400 Body height 175.3 cm Rachel Ontiveros MD Work Phone: [facility] 09-22-2023 12:08-0400 Body weight 87.09 kg Rachel Ontiveros MD Work Phone: [facility] 01-21-2022 08:20-0400 Diastolic blood pressure 84 mm[Hg] DO Mirela Hykes Work Phone: [facility] 01-21-2022 08:20-0400 Heart rate 84 /min DO Mirela Hykes Work Phone: [facility] 01-21-2022 08:20-0400 Respiratory rate 18 /min DO Mirela Hykes Work Phone: [facility] 01-21-2022 08:20-0400 SaO2% (BldA) [Mass fraction] 99 % DO Mirela Hykes Work Phone: [facility] 01-21-2022 08:20-0400 Systolic blood pressure 124 mm[Hg] DO Mirela Hykes Work Phone: [facility] 01-21-2022 06:41-0400 Body height 175.26 cm DO Mirela Hykes Work Phone: [facility] 01-21-2022 06:41-0400 Body temperature 97.9 [degF] DO Mirela Hykes Work Phone: [facility] 01-21-2022 06:41-0400 Body weight 90.71 kg DO Mirela Hykes Work Phone: [facility] Encounters Encounter Date Encounter Type Care Provider Facility Start: 02-21-2024 End: 02-21-2024 ambulatory KATELIN BASURTO Not Available Start: 02-20-2024 End: 02-20-2024 ambulatory Sukh Cao MD Work Phone: Otolaryngology Comment on above: 2nd MRI Start: 11-13-2023 End: 11-13-2023 Patient encounter procedure Quoc Garcia MD Work Phone: General Surgery Comment on above: Post-operative state (Primary Dx) Start: 11-13-2023 End: 11-13-2023 ambulatory MIRELA WHITE Facility:[facility] Start: 10-31-2023 End: 10-31-2023 ambulatory [facility] Facility:[facility] Start: 10-30-2023 Orders Only Miky Be PA-C Work Phone: Orthopaedics Start: 10-25-2023 End: 10-25-2023 ambulatory MIRELA GUS WHITE Facility:[facility] Start: 10-25-2023 End: 10-25-2023 Admission to establishment [facility] Work Phone: Pre Anesthesia Start: 10-25-2023 End: 10-25-2023 Anesthesia consultation [facility] Work Phone: Pre Anesthesia Comment on above: Tinnitus of both ear s (Primary Dx); Preoperative examination; Non-recurrent unilateral inguinal hernia without obstruction or gangrene Start: 10-25-2023 Encounter for other preprocedural examination MIRELA WHITE [facility] Start: 10-25-2023 End: 10-25-2023 Evaluation and management of inpatient QUOC SHELBYBHU Facility:[facility] Start: 10-25-2023 End: 10-25-2023 Preprocedural examination done [facility] [place] [facility] Work Phone: [facility] Start: 09-27-2023 Telephone encounter Sukh rucker MD Work Phone: Otolaryngology Start: 09-22-2023 End: 09-22-2023 Patient encounter procedure Rachel Ontiveros MD Work Phone: Orthopaedics Comment on above: Primary osteoarthrit is of both hips (Primary Dx) Start: 09-22-2023 End: 09-22-2023 ambulatory RACHEL ONTIVEROS Facility:[facility] Start: 09-22-2023 End: 09-22-2023 Subsequent hospital visit by physician Erlinda Treviño A21 Radiology Comment on above: Primary osteoarthrit is of right hip [M16.11] Start: 09-22-2023 End: 09-22-2023 ambulatory SUKH CAO Facility:[facility] Start: 09-22-2023 End: 09-22-2023 Subsequent hospital visit by physician Karley Ramesh (1.5t) Work Phone: Radiology Comment on above: Sensorineural hearin g loss (SNHL) of both ears [H90.3] Start: 08-18-2023 Orders Only Rachel Ontiveros MD Work Phone: Orthopaedics Comment on above: Primary osteoarthrit is of right hip (Primary Dx) Start: 08-09-2023 ambulatory Quoc Day Work Phone: [facility] Comment on above: 10.27.23 Cure (Lap L eft Inguinal Hernia Repair 1.5 hours los 0) Start: 08-09-2023 Preprocedural examination done Quoc Garcia MD Work Phone: [facility] Start: 08-07-2023 End: 08-07-2023 ambulatory SELF Facility:[facility] Start: 07-14-2023 End: 07-14-2023 Patient encounter procedure Leeann Morin DO Work Phone: Orthopedics Comment on above: Primary osteoarthrit is of right hip (Primary Dx) Primary osteoarthrit is of right hip (Primary Dx); Anemia, unspecified type Start: 07-14-2023 End: 07-14-2023 ambulatory LEEANN MORIN Facility:[facility] Start: 07-14-2023 End: 07-14-2023 Subsequent hospital visit by physician Erlinda Carranza Work Phone: Radiology Comment on above: Primary osteoarthrit is of right hip [M16.11] Start: 10-21-2022 End: 10-21-[address] DOCTOR PASTRANA Facility: Start: 01-21-2022 End: 01-21-2022 Admission to same day surgery center DO Mirela Morgan Work Phone: [facility] Start: 01-19-2022 End: 01-19-2022 Patient encounter procedure DO Mirela Morgan Work Phone: [id number] Testing Procedures Date Procedure Procedure Detail Performing Clinician Start: 10-25-2023 Antibody screen MIRELA ETIENNE Comment on above: Order Comment: Speci men Type: BLOOD SPECIMENOrdering Facility: [facility] Address: [address] [place] [address] Performed By: #### T [id number] ####CC MAIN BLOOD BANKCLIA [id number] [address] [place] Start: 09-22-2023 Radex hip unilateral with pelvis 2-3 views Rachel Ontiveros MD Work Phone: Start: 09-22-2023 Mri brain brain stem w/o w/contrast material Sukh Cao MD Work Phone: Start: 07-14-2023 Radex hip unilateral with pelvis 2-3 views Leeann Morin DO Work Phone: Start: 01-21-2022 Screening colonoscopy D O Mirela Morgan Work Phone: SARS Antigen (LFIA) DO Mirela Morgan Work Phone: Plan of Treatment Date Care Activity Detail Author Start: 10-24-2026 Diabetes Screening Diabetes Screentadeo gomez [facility] Start: 03-29-2024 End: 03-29-2024 Patient encounter procedure 03/29/2024 10:00 AM EDT Appointment Radiology [address] [place] [address] MRI BRAIN WO/W IVCON Radiology Comment on above: MRI BRAIN WO/W IVCON Start: 03-28-2024 End: 10-26-2024 MR Brain WO and W contrast IV MRI BRAIN WO/W IVCON Radiology Routine Sensorineural hearing loss (SNHL) of right ear with unrestricted hearing of left ear Expected: 03/28/2024, Expires: 10/26/2024 [facility] Work Phone: Comment on above: Expected: 03/28/2024 , Expires: 10/26/2024 Start: 02-11-2024 Covid-19 Vaccine ( season) Covid-19 Vaccine ( season) [facility] Start: 02-11-2024 Influenza vaccination [facility] Start: 10-31-2023 End: 10-31-2023 Admission to same day surgery center 10/31/2023 7:30 AM EDT - 10/31/2023 9:45 AM EDT Surgery Admitting [address] [place] [address] Quoc Garcia MD [address] [place] [address] LAPAROSCOPIC HERNIORRHAPHY, INGUINAL INITIAL Admitting Comment on above: LAPAROSCOPIC HERNIOR RHAPHY, INGUINAL INITIAL Start: 10-31-2023 End: 10-31-2023 Laparoscopy surg rpr initial inguinal hernia LAPAROSCOPIC HERNIORRHAPHY, INGUINAL INITIAL Preoperative examination Non-recurrent unilateral inguinal hernia without obstruction or gangrene 10/31/2023 7:30 AM EDT [facility] Start: 10-31-2023 Subsequent hospital visit by physician 10/31/2023 7:30 AM EDT Hospital Encounter Admitting [address] [place] [address] Quoc Garcia MD [address] [place] [address] Preoperative examination [Z01.818] Admitting Comment on above: Preoperative examina tion [Z01.818] Start: 09-01-2023 End: 12-09-2023 aPTT in Platelet poor plasma by Coagulation assay ACTIVATED PTT Lab Routine Preoperative examination Non-recurrent unilateral inguinal hernia without obstruction or gangrene Expected: 09/01/2023, Expires: 12/09/2023 [facility] Work Phone: Comment on above: Expected: 09/01/2023 , Expires: 12/09/2023 Start: 09-01-2023 End: 12-09-2023 CBC W Auto Differential panel - Blood CBC + DIFF Lab Routine Preoperative examination Non-recurrent unilateral inguinal hernia without obstruction or gangrene Expected: 09/01/2023, Expires: 12/09/2023 [facility] Work Phone: Comment on above: Expected: 09/01/2023 , Expires: 12/09/2023 Start: 09-01-2023 End: 12-09-2023 Comprehensive metabolic 2000 panel - Serum or Plasma COMP METABOLIC PANEL Lab Routine Preoperative examination Non-recurrent unilateral inguinal hernia without obstruction or gangrene Expected: 09/01/2023, Expires: 12/09/2023 [facility] Work Phone: Comment on above: Expected: 09/01/2023 , Expires: 12/09/2023 Start: 09-01-2023 End: 12-09-2023 PT panel - Platelet poor plasma by Coagulation assay PROTHROMBIN TIME/PT Lab Routine Preoperative examination Non-recurrent unilateral inguinal hernia without obstruction or gangrene Expected: 09/01/2023, Expires: 12/09/2023 [facility] Work Phone: Comment on above: Expected: 09/01/2023 , Expires: 12/09/2023 Start: 09-01-2023 End: 12-09-2023 TYPE AND SCREEN,30 DAY TYPE AND SCREEN,30 DAY Blood Bank Routine Preoperative examination Non-recurrent unilateral inguinal hernia without obstruction or gangrene Expected: 09/01/2023, Expires: 12/09/2023 [facility] Work Phone: Comment on above: Expected: 09/01/2023 , Expires: 12/09/2023 Start: 08-22-2023 End: 11-21-2023 25-hydroxyvitamin D3 [Mass/volume] in Serum or Plasma VITAMIN D 25 HYDROXY Lab Routine Primary osteoarthritis of right hip Expected: 08/22/2023 (Approximate), Expires: 11/21/2023 [facility] Work Phone: Comment on above: Expected: 08/22/2023 (Approximate), Expires: 11/21/2023 Start: 08-22-2023 End: 11-21-2023 Albumin [Mass/volume] in Serum or Plasma ALBUMIN BLD Lab Routine Primary osteoarthritis of right hip Expected: 08/22/2023 (Approximate), Expires: 11/21/2023 [facility] Work Phone: Comment on above: Expected: 08/22/2023 (Approximate), Expires: 11/21/2023 Start: 08-22-2023 End: 11-21-2023 Basic metabolic 2000 panel - Serum or Plasma BASIC METABOLIC PNL Lab Routine Primary osteoarthritis of right hip Expected: 08/22/2023 (Approximate), Expires: 11/21/2023 [facility] Work Phone: Comment on above: Expected: 08/22/2023 (Approximate), Expires: 11/21/2023 Start: 08-22-2023 End: 11-21-2023 CBC panel - Blood by Automated count CBC Lab Routine Primary osteoarthritis of right hip Expected: 08/22/2023 (Approximate), Expires: 11/21/2023 [facility] Work Phone: Comment on above: Expected: 08/22/2023 (Approximate), Expires: 11/21/2023 Start: 08-22-2023 End: 11-21-2023 CBC W Auto Differential panel - Blood CBC + DIFF Lab Routine Anemia, unspecified type Expected: 08/22/2023 (Approximate), Expires: 11/21/2023 [facility] Work Phone: Comment on above: Expected: 08/22/2023 (Approximate), Expires: 11/21/2023 Start: 08-22-2023 End: 11-21-2023 CONFIRM BLOOD TYPE CONFIRM BLOOD TYPE Blood Bank Routine Primary osteoarthritis of right hip Expected: 08/22/2023 (Approximate), Expires: 11/21/2023 [facility] Work Phone: Comment on above: Expected: 08/22/2023 (Approximate), Expires: 11/21/2023 Start: 08-22-2023 End: 11-21-2023 Ferritin [Mass/volume] in Serum or Plasma FERRITIN BLD Lab Routine Anemia, unspecified type Expected: 08/22/2023 (Approximate), Expires: 11/21/2023 [facility] Work Phone: Comment on above: Expected: 08/22/2023 (Approximate), Expires: 11/21/2023 Start: 08-22-2023 End: 11-21-2023 Iron and Iron binding capacity panel - Serum or Plasma IRON + TIBC Lab Routine Anemia, unspecified type Expected: 08/22/2023 (Approximate), Expires: 11/21/2023 [facility] Work Phone: Comment on above: Expected: 08/22/2023 (Approximate), Expires: 11/21/2023 Start: 08-22-2023 End: 11-21-2023 TYPE AND SCREEN,30 DAY TYPE AND SCREEN,30 DAY Blood Bank Routine Primary osteoarthritis of right hip Expected: 08/22/2023 (Approximate), Expires: 11/21/2023 [facility] Work Phone: Comment on above: Expected: 08/22/2023 (Approximate), Expires: 11/21/2023 Start: 06-12-2023 Behavioral Health Screening Behavioral Health Screening [facility] Start: 06-12-2023 Depression Assessment Depression Ass essment [facility] Start: 02-10-2023 Covid-19 Vaccine ( season) Covid-19 Vaccine ( season) [facility] Start: 02-10-2023 Influenza vaccination Influenza Vacc ine (#1) [facility] Start: 01-21-2022 [facility] Work Phone: Start: 2021 Shingrix Vaccine (1 of 2) Shingrix Vaccine (1 of 2) [facility] Start: 2016 Diabetes Screening Diabetes Screenin g [facility] Start: 2016 Screening for malign ant neoplasm of colon [facility] Start: 2006 Lipid panel Lipid Screening [facility] Start: 1990 Hepatitis B Vaccine (1 of 3 - 19+ 3-dose series) Hepatitis B Vaccine (1 of 3 - 19+ 3-dose series) [facility] Start: 1990 Urine microalbumin profile DTaP,Tdap,Td Vaccine (1 - Tdap) [facility] Start: 1989 Anxiety Screening Anxiety Screening [facility] Start: 1989 Depression Screening Depression Scre jayesh [facility] Start: 1989 Hepatitis C screening Hepatitis C Sc celina [facility] Start: 1989 HIV screening HIV Screening [facility] Start: 1971 Hepatitis B Vaccine (1 of 3 - 3-dose series) Hepatitis B Vaccine (1 of 3 - 3-dose series) [facility] End: 07-14-2024 ECG COMPLETE ECG COMPLETE ECG Routine Primary osteoarthritis of right hip 1 Occurrences starting 07/14/2023 until 07/14/2024 [facility] Work Phone: Comment on above: 1 Occurrences starti ng 07/14/2023 until 07/14/2024 End: 08-09-2024 ECG COMPLETE ECG COMPLETE ECG Routine Preoperative examination Non-recurrent unilateral inguinal hernia without obstruction or gangrene 1 Occurrences starting 08/10/2023 until 08/09/2024 [facility] Work Phone: Comment on above: 1 Occurrences starti ng 08/10/2023 until 08/09/2024 Patient Education Diverticulosis (DC) [facility] Work Phone: PT ED ORTHOPAEDICS PT ED ORTHOPA EDICS Other 07/14/2023 [facility] Work Phone: REFER FOR ADMIT INTERVIEW REFER FOR ADMIT INTERVIEW Procedures Routine Preoperative examination Non-recurrent unilateral inguinal hernia without obstruction or gangrene Ordered: 08/10/2023 [facility] Work Phone: Comment on above: Ordered: 08/10/2023 End: 09-16-2024 XR Hip - right AP and Lateral XR HIP 2V AP/LAT RIGHT (AK,FL,ME,UN) Radiology Routine Primary osteoarthritis of right hip 1 Occurrences starting 08/18/2023 until 09/16/2024 [facility] Work Phone: Comment on above: 1 Occurrences starti ng 08/18/2023 until 09/16/2024 End: 08-12-2024 XR HIP GENERAL 3V PELV/AP/LAT RIGHT XR HIP GENERAL 3V PELV/AP/LAT RIGHT Radiology Routine Primary osteoarthritis of right hip 1 Occurrences starting 07/14/2023 until 08/12/2024 [facility] Work Phone: Comment on above: 1 Occurrences starti ng 07/14/2023 until 08/12/2024 [facility] c Immunizations Immunization Date Immunization Notes Care Provider Laura geronimo 03-08-2022 influenza virus vaccine, unspecified formulation Leeann Morin Work Phone: [facility] Payers Date Payer Category Payer Unknown [id number] 1971 Unknown [id number] 1971 Unknown [id number] 1959 Unknown [id number] Social History Date Type Detail Facility Start: 01-21-2022 End: 09-22-2023 Tobacco smoking status NVIS Never smoked tobacco (finding) [facility] Start: 1970 Sex Assigned At Male [facility] Tobacco smoking stat [facility] Tobacco smoking consumption unknown [facility] Work Phone: Start: 07-13-2023 End: 09-20-2023 History of Social function [facility] Start: 07-13-2023 End: 09-20-2023 Patient Health Questionnaire 2 item (PHQ-2) [Reported] [facility] Adult Depression Screening Assessment 0 [facility] Start: 1970 Sex Assigned At Not on file [facility] Start: 09-22-2023 Tobacco use and exposure Smokeless tobacco non-user [facility] Start: 10-25-2023 End: 11-13-2023 Alcohol intake Current drinker of alcohol (finding) [facility] Start: 10-25-2023 Alcohol Comment 2 beers per week [facility] Medical Equipment Procedure Code Equipment Code Equipment Origin al Text Equipment Identifier Dates Mesh Bard 3dmax Xl 3d Anatomical Curve Flat Polypropylene 12.4cmx17.3 Cmm - [id number] Start: 10-31-2023 Goals Date Patient Goal Desired Activity /State Clinical Notes 07-14-2023 to 11-13-2023 Quoc Garcia MD - 11/13/2023 2:37 PM Rosenda Power MD - 11/13/2023 11:38 AM Lou Bourne MA - 11/13/2023 11:24 AM Lou Bourne MA - 11/13/2023 11:24 AM EDTPatient Instructions Note Date & Type Note Facility 11-13-2023 Note HNO ID: [id number] Author: QUOC GARCIA MD Service: ? Author Type: Physician Type: Progress Notes Filed: 11/13/2023 14:38 Note Text: I have seen and evaluated the patient and discussed the case with the resident physician. I agree with the assessment and plan as documented in the resident?s note. Here after lap L inguinal hernia repair with mesh on 10/30, doing well overall, no major issues and pleased with repair. F/U 1 year. Incisions healing. Quoc Garcia MD November 13, 2023 2:38 PM [facility] 11-13-2023 History of Presen t illness Narrative I have seen and evaluated the patient and discussed the case with the resident physician. I agree with the assessment and plan as documented in the resident s note. Here after lap L inguinal hernia repair with mesh on 10/30, doing well overall, no major issues and pleased with repair. F/U 1 year. Incisions healing. Quoc Garcia MD November 13, 2023 2:38 PM Images from the original note were not included. GENERAL SURGERY CLINIC PROGRESS NOTE Sukh Adler [id number] ASSESSMENT AND PLAN Sukh Adler is a 53 year old male who underwent a laparoscopic left inguinal hernia repair with mesh on 10/31/[address] Garcia, Doing well post-op - follow-up as needed Seen and discussed with Dr. Jose Carlton MD PGY4 INTERVAL HPI: Has been doing well post-op. Had some periumbilical pain for a few days post-op that has improved. Denies fevers/chills. No nausea/vomiting. Passing gas and having bowel movements. No recurrent bulging or signs of recurrence. OBJECTIVE: BP 144/70 Pulse 67 Temp 36.4 C (97.5 F) (Temporal) Ht 175.3 cm (5' 9 ) Wt 85.7 kg (189 lb) BMI 27.91 kg/m Body mass index is 27.91 kg/m . GENERAL: Alert and oriented, no acute distress, cooperative. LUNGS: Non labored breathing ABDOMEN: soft, non tender, mildly distended. Incisions with glue in place, healing well. documented in this encounter [facility] 11-13-2023 Note HNO ID: [id number] Author: ROSENDA CARLTON MD Service: ? Author Type: Resident Type: Progress Notes Filed: 11/13/2023 14:38 Note Text: GENERAL SURGERY CLINIC PROGRESS NOTE Sukh Adler [id number] ASSESSMENT AND PLAN Sukh Adler is a 53 year old male who underwent a laparoscopic left inguinal hernia repair with mesh on 10/31/[address] Garcia, Doing well post-op - follow-up as needed Seen and discussed with Dr. Jose Carlton MD PGY4 INTERVAL HPI: Has been doing well post-op. Had some periumbilical pain for a few days post-op that has improved. Denies fevers/chills. No nausea/vomiting. Passing gas and having bowel movements. No recurrent bulging or signs of recurrence. OBJECTIVE: BP 144/70 Pulse 67 Temp 36.4 ?C (97.5 ?F) (Temporal) Ht 175.3 cm (5' 9 ) Wt 85.7 kg (189 lb) BMI 27.91 kg/m? Body mass index is 27.91 kg/m?. GENERAL: Alert and oriented, no acute distress, cooperative. LUNGS: Non labored breathing ABDOMEN: soft, non tender, mildly distended. Incisions with glue in place, healing well. [facility] 11-13-2023 Nurse Note What is the reason for your visit today? Post op Who is your referring physician? Dr. Garcia Are you having poor oral intake? NO Have you had unintentional weight loss of 15 lbs/7 Kg in the last 3-6 months? NO Bowels: regular Wound: clean & dry Temperature: No Drains: No [facility] 11-13-2023 Nurse Note What is the reason for your visit today? Post op Who is your referring physician? Dr. Garcia Are you having poor oral intake? NO Have you had unintentional weight loss of 15 lbs/7 Kg in the last 3-6 months? NO Bowels: regular Wound: clean & dry Temperature: No Drains: No documented in this encounter [facility] 10-31-2023 Note HNO ID: [id number] Author: PATITO TREVINO APRN.RECEP Service: ? 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 RECEP: Patito Trevino APRN.RECEP Performed by: RECEP Indications and Patient Condition Indications for airway management: anesthesia Preoxygenated: yes anesthesia circuit Patient position: sniffing Method: sleep Cricoid Pressure: No Manual In-Line Stabilization: No Difficult Mask: No Final Airway Details Final airway type: endotracheal airway Final Endotracheal Airway: ETT Cuffed: yes Successful intubation technique: video laryngoscopy Devices used: Mobiscope Endotracheal tube insertion site: oral Blade: Sourav Blade size: #4 ETT size (mm): 7.0 Measured from: lips Measurement (cm): 22 Placement verified by: capnometry Cormack-Lehane Classification: grade I - full view of glottis Number of attempts at approach: 1 Ventilation between attempts: none Failed airway: no Unrecognized esophageal intubation: no Airway not difficult SIGNATURE: Patito Trevino APRN.CRNA PATIENT NAME: Sukh Adler DATE: October 31, 2023 TIME: 7:36 AM CSN: [id number] [facility] 10-25-2023 History and physical note Images from the original note were not included. HISTORY AND PHYSICAL EXAMINATION SERVICE DATE: 10/25/2023 SERVICE TIME: 11:18 AM PRIMARY CARE PHYSICIAN: Mirela White MD Assessment There is no known pertinent medical condition which may affect cate-operative course Hernández Activity Status Index: METS: Climb a flight of stairs or walk up a hill (5.50 METs) DASI Score: 5.5 Patient denies any chest pain or undue shortness of breath with the above physical activity. Clinical Frailty Scale: 2. Well STOP-Bang Score: Snores loudly Patient over 50 years old Male patient Denies feeling tired, fatigued, or sleepy during the daytime Has not been observed to stop breathing or choking/gasping during sleep Denies having high blood pressure BMI less than or equal to 35 kg/m^2 Does not have a large neck STOP-Bang Score: 3 [id number] Score: Age: <65 Sex: male CHF history: No Hypertension history: No Stroke/TIA/thromboembolism history: No Vascular disease history: No Diabetes history: No [id number] Score: 0 ANESTHESIA FINDINGS: Intubation History: No prior intubation Significant Anesthesia Considerations: none Airway History: No prior intubation I - PHYSICAL EVALUATION AIRWAY Patient intubated: No. Tracheostomy tube not present Mallampati: III. TM distance: >3 FB. Neck ROM: full ROM without neurological symptoms. Mouth opening: adequate. Short neck: no. Thick neck: no Lip Bite Test: I Microretrognathia/Micronagthia/R ecessed Chin: No DENTAL Dental findings: teeth intact. II - ANESTHESIA PLAN Beta Millicent Monitoring Plan Post Procedure Analgesic Plan Prepared for Surgery: optimally prepared for surgery, pending [see comment]. Labs and EKG ordered by surgeon will review results CONSULTS: Patient does not require consults for optimization at this time Planned Anesthetic: The Following Tests/Procedures Have Been Initiated: No orders of the defined types were placed in this encounter. This is a virtual visit using Jooix video visit. It required patient-provider interaction for the medical decision making as documented below. REASON FOR VISIT: Sukh Adler is a 53 year old male who is scheduled for Procedure(s): LAPAROSCOPIC HERNIORRHAPHY, INGUINAL INITIAL (Left) at the request of Dr. Kayce Velazquez for consultation. My final recommendation will be communicated back to the requesting physician by way of shared medical record or letter. Subjective The patient has the following: ACTIVE PROBLEM LIST Osteoarthritis of Left Hip Osteoarthritis Resulting From Right Hip Dysplasia Primary Osteoarthritis of Right Hip Varicocele Tinnitus of Both Ears COVID-19 Immunization Status Overdue - Covid-19 Vaccine ( season) Overdue since 02/10/2023 04/12/2021 Outside Immunization: COVID-19, mRNA, LNP-S, PF, 100mcg/0.5mL Dose 09/04/2020 Outside Immunization: COVID-19, mRNA, LNP-S, PF, 100mcg/0.5mL Dose 08/05/2020 Outside Immunization: COVID-19, mRNA, LNP-S, PF, 100mcg/0.5mL Dose Only the first 3 history entries have been loaded, but more history exists. CHIEF COMPLAINT: Surgery HPI: Patient is a 53 year old male presenting for upcoming left inguinal hernia repair. Denies pain at this time but occasionally has to manually reduce it. Recommended for surgery and elected to proceed. This is a virtual visit. The visit was conducted using Joo[employer] video visit. It required patient-provider interaction for the medical decision making as documented below. I have communicated my name and active licensure. The patient's identity and physical location were verified at the time of this visit. Either the patient or their legal manufacturing sales representative has been informed of the risks and benefits of and alternatives to treatment through a remote evaluation and consents to proceed with the evaluation remotely. REVIEW OF SYSTEMS: General: No weight loss, malaise or fevers. Neurological: Negative for: impaired sensorium, seizures, TIA and strokes. Respiratory: Negative for: asthma, COPD, current cough, home oxygen, pneumonia within 6 weeks, URI < 2 weeks and obstructive sleep apnea. Cardiovascular: Negative for: AICD/PPM, CAD, chest pain, DVT/PE and murmur/valvular heart disease. GI: Negative for: abdominal pain, liver disease and nausea. : Negative for: dysuria, frequent urination, hematuria and renal failure. Endocrine: Negative for: hypothyroidism and steroid for chronic problem. Hematology: Negative for: anemia, bruises/bleeds easily and chronic anti-coagulation/platelet meds. Oncology: No history of CA metastasis, chemo within 30 days, or radiotherapy within 90 days. No history of oncological symptoms or problems. Psych: No history of psychiatric symptoms or problems. Musculoskeletal: Negative for: swelling. Skin: Negative for lesions, rash and itching. Negative for: rash. History reviewed. No pertinent past medical history. PAST SURGICAL HISTORY Procedure Laterality Date COLONOSCOPY SCREENING History reviewed. No pertinent family history. Social History Tobacco Use Smoking status: Never Smokeless tobacco: Never Substance Use Topics Alcohol use: Yes Comment: 2 beers per week Drug use: Not Currently Prior to Admission medications as of 10/25/23 1115 Medication Sig Last Dose Taking magnesium oxide 400 mg magnesium tab Take 400 mg by mouth once daily. vitamin b complex tab Take 1 tablet by mouth once daily. No medication comments found. ALLERGIES No Known Allergies Objective PHYSICAL EXAM: (if completed, exam performed via video enabled technology) General: alert and oriented. Pertinent negatives noted - not distressed. Skin: normal color, no rash or lesions. HEENT: Normal ROM neck. No deformity. . Cardiovascular: Respiratory: Pertinent negatives noted - no chest deformity. No distress. No obvious wheezing. . Abdomen: Extremities: Denies edema / erythema . Neurological: normal cognition and motor skills. Pertinent negatives noted - no speech abnormality. PAIN ASSESSMENT: VITALS: Ht 5' 8 (1.73m) Wt 190 lb (86.2kg) BMI 28.90 kg/(m^2). Diagnostic tests reviewed for today's visit: Lab Value Units Date High Low HB No results within date range. HCT No results within date range. WBC No results within date range. PLT No results within date range. NA No results within date range. K No results within date range. GLUC No results within date range. BUN No results within date range. CREAT No results within date range. PTSEC No results within date range. INR No results within date range. APTT No results within date range. ALT No results within date range. AST No results within date range. TBILI No results within date range. TSH No results within date range. Lab Value Units Date High Low HCGQT No results within date range. UHCG No results within date range. HCG, BODY* No results within date range. Lab Value Units Date High Low ABORHD No results within date range. ABSCREEN No results within date range. No results found for: HBA1C No results found for this or any previous visit (from the past 8760 hour(s)). No results found for this or any previous visit (from the past 94517 hour(s)). Instructions Given to Patient: Instructions located in the after visit summary. Patient given verbal and written preop instructions and voices comprehension and compliance. SIGNATURE: Moncho Raymond PA-C PATIENT NAME: Sukh Adler DATE: October 25, 2023 TIME: 10:55 AM PAGER/CONTACT #: T [facility] 10-25-2023 History and physical note Images from the original note were not included. HISTORY AND PHYSICAL EXAMINATION SERVICE DATE: 10/25/2023 SERVICE TIME: 11:18 AM PRIMARY CARE PHYSICIAN: Mriela White MD Assessment There is no known pertinent medical condition which may affect cate-operative course Hernández Activity Status Index: METS: Climb a flight of stairs or walk up a hill (5.50 METs) DASI Score: 5.5 Patient denies any chest pain or undue shortness of breath with the above physical activity. Clinical Frailty Scale: 2. Well STOP-Bang Score: Snores loudly Patient over 50 years old Male patient Denies feeling tired, fatigued, or sleepy during the daytime Has not been observed to stop breathing or choking/gasping during sleep Denies having high blood pressure BMI less than or equal to 35 kg/m^2 Does not have a large neck STOP-Bang Score: 3 [id number] Score: Age: <65 Sex: male CHF history: No Hypertension history: No Stroke/TIA/thromboembolism history: No Vascular disease history: No Diabetes history: No [id number] Score: 0 ANESTHESIA FINDINGS: Intubation History: No prior intubation Significant Anesthesia Considerations: none Airway History: No prior intubation I - PHYSICAL EVALUATION AIRWAY Patient intubated: No. Tracheostomy tube not present Mallampati: III. TM distance: >3 FB. Neck ROM: full ROM without neurological symptoms. Mouth opening: adequate. Short neck: no. Thick neck: no Lip Bite Test: I Microretrognathia/Micronagthia/R ecessed Chin: No DENTAL Dental findings: teeth intact. II - ANESTHESIA PLAN Beta Millicent Monitoring Plan Post Procedure Analgesic Plan Prepared for Surgery: optimally prepared for surgery, pending [see comment]. Labs and EKG ordered by surgeon will review results CONSULTS: Patient does not require consults for optimization at this time Planned Anesthetic: The Following Tests/Procedures Have Been Initiated: No orders of the defined types were placed in this encounter. This is a virtual visit using Jooix video visit. It required patient-provider interaction for the medical decision making as documented below. REASON FOR VISIT: Sukh Adler is a 53 year old male who is scheduled for Procedure(s): LAPAROSCOPIC HERNIORRHAPHY, INGUINAL INITIAL (Left) at the request of Dr. Kayce Velazquez for consultation. My final recommendation will be communicated back to the requesting physician by way of shared medical record or letter. Subjective The patient has the following: ACTIVE PROBLEM LIST Osteoarthritis of Left Hip Osteoarthritis Resulting From Right Hip Dysplasia Primary Osteoarthritis of Right Hip Varicocele Tinnitus of Both Ears COVID-19 Immunization Status Overdue - Covid-19 Vaccine () Overdue since 02/10/2023 04/12/2021 Outside Immunization: COVID-19, mRNA, LNP-S, PF, 100mcg/0.5mL Dose 09/04/2020 Outside Immunization: COVID-19, mRNA, LNP-S, PF, 100mcg/0.5mL Dose 08/05/2020 Outside Immunization: COVID-19, mRNA, LNP-S, PF, 100mcg/0.5mL Dose Only the first 3 history entries have been loaded, but more history exists. CHIEF COMPLAINT: Surgery HPI: Patient is a 53 year old male presenting for upcoming left inguinal hernia repair. Denies pain at this time but occasionally has to manually reduce it. Recommended for surgery and elected to proceed. This is a virtual visit. The visit was conducted using Jooix video visit. It required patient-provider interaction for the medical decision making as documented below. I have communicated my name and active licensure. The patient's identity and physical location were verified at the time of this visit. Either the patient or their legal manufacturing sales representative has been informed of the risks and benefits of and alternatives to treatment through a remote evaluation and consents to proceed with the evaluation remotely. REVIEW OF SYSTEMS: General: No weight loss, malaise or fevers. Neurological: Negative for: impaired sensorium, seizures, TIA and strokes. Respiratory: Negative for: asthma, COPD, current cough, home oxygen, pneumonia within 6 weeks, URI < 2 weeks and obstructive sleep apnea. Cardiovascular: Negative for: AICD/PPM, CAD, chest pain, DVT/PE and murmur/valvular heart disease. GI: Negative for: abdominal pain, liver disease and nausea. : Negative for: dysuria, frequent urination, hematuria and renal failure. Endocrine: Negative for: hypothyroidism and steroid for chronic problem. Hematology: Negative for: anemia, bruises/bleeds easily and chronic anti-coagulation/platelet meds. Oncology: No history of CA metastasis, chemo within 30 days, or radiotherapy within 90 days. No history of oncological symptoms or problems. Psych: No history of psychiatric symptoms or problems. Musculoskeletal: Negative for: swelling. Skin: Negative for lesions, rash and itching. Negative for: rash. History reviewed. No pertinent past medical history. PAST SURGICAL HISTORY Procedure Laterality Date COLONOSCOPY SCREENING History reviewed. No pertinent family history. Social History Tobacco Use Smoking status: Never Smokeless tobacco: Never Substance Use Topics Alcohol use: Yes Comment: 2 beers per week Drug use: Not Currently Prior to Admission medications as of 10/25/23 1115 Medication Sig Last Dose Taking magnesium oxide 400 mg magnesium tab Take 400 mg by mouth once daily. vitamin b complex tab Take 1 tablet by mouth once daily. No medication comments found. ALLERGIES No Known Allergies Objective PHYSICAL EXAM: (if completed, exam performed via video enabled technology) General: alert and oriented. Pertinent negatives noted - not distressed. Skin: normal color, no rash or lesions. HEENT: Normal ROM neck. No deformity. . Cardiovascular: Respiratory: Pertinent negatives noted - no chest deformity. No distress. No obvious wheezing. . Abdomen: Extremities: Denies edema / erythema . Neurological: normal cognition and motor skills. Pertinent negatives noted - no speech abnormality. PAIN ASSESSMENT: VITALS: Ht 5' 8 (1.73m) Wt 190 lb (86.2kg) BMI 28.90 kg/(m^2). Diagnostic tests reviewed for today's visit: Lab Value Units Date High Low HB No results within date range. HCT No results within date range. WBC No results within date range. PLT No results within date range. NA No results within date range. K No results within date range. GLUC No results within date range. BUN No results within date range. CREAT No results within date range. PTSEC No results within date range. INR No results within date range. APTT No results within date range. ALT No results within date range. AST No results within date range. TBILI No results within date range. TSH No results within date range. Lab Value Units Date High Low HCGQT No results within date range. UHCG No results within date range. HCG, BODY* No results within date range. Lab Value Units Date High Low ABORHD No results within date range. ABSCREEN No results within date range. No results found for: HBA1C No results found for this or any previous visit (from the past 8760 hour(s)). No results found for this or any previous visit (from the past 41879 hour(s)). Instructions Given to Patient: Instructions located in the after visit summary. Patient given verbal and written preop instructions and voices comprehension and compliance. SIGNATURE: Moncho Raymond PA-C PATIENT NAME: Sukh Adler DATE: October 25, 2023 TIME: 10:55 AM PAGER/CONTACT #: documented in this encounter [facility] 09-27-2023 Miscellaneous Notes Discussed MRI findings Recommend observation with repeat MRI in 6 months Regarding the tinnitus, we will switch him to amitriptyline and he will inform me in one month documented in this encounter [facility] 09-22-2023 History of Presen t illness Narrative Established Patient Ortho Hip Consult Note ASSESSMENT & PLAN: Impression: Bilateral Hip Severe Degenerative Osteoarthritis, Primary , Right worse than left He was previously scheduled for surgery with Dr. Morin on 08/28. This was ultimately cancelled because the patient was unsure he was ready to move forward with surgery. He wanted to have more information and wanted to do some more research. He had phone call with Dr. Chase and was recommended to see us for further consultation. Pain location: Groin and anterior thigh pain on bilateral legs. This is worse on the right. His range of motion is also worse on the right when compared to the left. He has pain with most activities. Pain with walking, stairs, getting in and out of the car, getting dressed. He also is not able to get his leg up and over onto his motorcycle. Therapy to date - Ice or Heat: ice OTC/Rx Medications (Topical/PO): Meloxicam in the past with very minimal relief -- tooth issue is causing him to take 800 mg ibuprofen that is helping him some the past 3 days. He is due to have 2 root canals - October 17. Brace/Splint: none Assist Device: none Physical Therapy: None formally, he is active and completes his own exercises Injections: He has had 2 injections first lasting 3 months with near complete resolution of symptoms. The injection this past March and he got a couple weeks of relief and it was incomplete. Last injection was about 2 months ago Surgery: none Recent BMI: 26.88 PMHx: Otherwise healthy Denies any medical conditions with heart, lung, kidneys or diabetes Home Situation: He has a 2 year old and 5 year old. He wants to move to his place in [place] soon when he retires. 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 Morin's team. He is here today as a third opinion, having previously scheduled surgery with Dr. Morin but then needing to cancel because of anxiety and concerns about which procedure he should choose. He then met with Dr. Chase, and it is now seeing our team. This entire session was spent counseling, going through the differences between a total hip replacement and hip resurfacing arthroplasty. We have talked through the differences in recovery, approach utilized, restrictions, and national registry data. We have also gone through concerns for metallosis and discussed the differences between a Ariadna hip resurfacing and other products that have been taken off the market due to high failure rates. We have talked about metallurgy and design/geometry of the implants. Ultimately, I do not feel that a total hip replacement is a bad option, and I think that both a hip resurfacing arthroplasty and total hip replacement are reasonable to consider. With that said, he is young, he rides motorcycles, and he wants to be active with his young children. A Abrams hip resurfacing makes a lot of sense, so long as he is not overwhelmed by the anxiety of the small theoretical risk of a metallosis reaction. He seems to be a fairly anxiety ridden individual, and I want to make sure that what ever choice he decides is the least detrimental to his overall anxiety. At present, it seems as if he is still leaning toward a hip resurfacing arthroplasty. He is in excellent hands with Dr. Morin, or my practice would be happy to take care of him as well. He has an upcoming root canal at the end of October 2023, and has plans to spend the summer in [place]. He is thinking he would like to return to [place] and have this operation completed at the end of January or sometime in February 2024. We are generally scheduling 6-8 weeks out, and I would like to see him back in the office to sign a consent. I would be happy to save a date for him should he communicate with us via telephone or Goojethart. If he did choose a total hip replacement, I would likely pursue a Microplasty + G7. I spent a total of 30 minutes on the date of the service which included [id number] patient care, completing clinical documentation, obtaining and/or reviewing separately obtained history, performing a medically appropriate examination, counseling and educating the patient/family/caregiver, independently interpreting results (not separately reported), and communicating results to the patient/family/caregiver. The counseled portion is detailed in the plan, as above, that I have personally verified and edited as appropriate. Any information added by medical student, resident, nurse, IMPORT EXPORT MANAGER/PA-C that I have placed my signature directly below I have verified and either instructed them to document in a scribe function or document appropriately in the chart during the patient visit. ACTIVE PROBLEM LIST Osteoarthritis of Left Hip Osteoarthritis Resulting From Right Hip Dysplasia Primary Osteoarthritis of Right Hip Varicocele SUBJECTIVE CHIEF COMPLAINT: Hip Pain, Right worse than left HPI: Sukh Adler is a 53 year old patient here for evaluation and management of Right hip pain. Patient has had progressive problems with the hip(s) most of the day over the past 2 year(s) interfering with activities which include walking 2 blocks, enjoying hobbies, exercise, rising from a sitting position, getting in and out of a car, dressing, and climbing stairs. The problem began limiting activities 1-6 months ago. Currently the pain in the joint is rated at 7 out of 10 with minimal activity. The pain is chronic and is located in the right groin and thigh. The pain is described as aching, burning, and sharp. Relieving factors include rest. Total Joint Arthroplasty: Risk Calculator Sukh Adler has a 2.37% chance of NOT returning home at discharge for a Primary total Hip replacement. Sukh's estimated Length of Stay is 1 day (Outpatient candidate). Sukh's 30 day chance of readmission is 2.22%. Readmission Probability 2.22 % (within 30 days following surgery) Estimated LOS 1 day Discharge Disposition Probability D/C to Home 97.63 % D/C to SNF 2.37 % These calculations are based on the following factors: - 53 years of age - sex is male - BMI of 28.35 kg/m2 - NarxCare score of 0 - 0 hospitalizations in the last 12 months - no history of heart disease - no history of diabetes - no history of COPD - history of anemia - preoperative ambulation: independent community distances - 2 step(s) to enter home - bed location is NOT on the first floor - bath location is NOT on the first floor - caregiver is consistent - home is not more than 150 miles away - PROMIS-10 Mental Health T score 50+ - Marital status: other Risk Factors for Total Joint Arthroplasty (TJA) Obesity normal High: BMI > 40 Moderate: BMI 30-40 Normal: BMI < 30 Diabetes normal High: A1C > 8 Moderate: A1C 7-8 Normal: A1C < 7 Smoking normal High: Current smoker Normal: Non smoker Anemia High Risk High: Hgb < 13 (men) N/A: Hgb >= 13 (men) Nutritional Status normal High: Alb<3.4, or prealb<15, or serum transferrin<200, or total lymphocyte count<1500 Normal: normal labs COPD normal High: dx of COPD Normal: no dx of COPD MRSA normal High: dx of MRSA or positive lab test Normal: no MRSA CKD normal High: eGFR<60 Moderate: eGFR 60-89 Normal: eGFR>90 Hx of DVT / PE normal High: dx of DVT / PE Normal: no dx of DVT / PE Narcotics Use normal High:NarxCare >=300 Moderate: 100-299 Normal: 0-99 HENOK normal High: dx of HENOK N/A: no dx of HENOK Coagulation normal High:PT Sec>13, or PT INR>1.3, or APTT>32.4, or Plt ct<150k Moderate: on anticoag but none of the above Normal: none Anemia No results found for: HB Other Risk Factors None PHYSICAL EXAM There were no vitals taken for this visit. All other systems deferred. GENERAL: Appears healthy, well-nourished, no deformities. HABITUS: Normal GAIT: Antalgic HIP EXAM: Right: Limb lengths are clinically equal ROM: Extension: Normal Flexion: 80 degrees, groin pain with deep flexion. Internal Rotation: 0 degrees External Rotation: 5 degrees Abduction: 40 degrees Strength: Abduction 5/5 and Flexion 5/5 Palpation: No tenderness to palpation Log roll: non-painful. Straight leg raise: positive for groin pain. Positive stinchfield. Neurovascular Status: Sensation Intact and Moves foot and ankle up & down. DF/PF strength 5/5. DATA: Diagnostic tests reviewed for today's visit: Right hip X-Ray: Severe degenerative changes, Severe loss of superior joint space , and Osteophytes SIGNATURE: Rachel Ontiveros MD PATIENT NAME: Sukh Adler DATE: September 22, 2023 TIME: 11:58 AM documented in this encounter [facility] 09-22-2023 Note HNO ID: [id number] Author: RACHEL ONTIVEROS MD Service: ? Author Type: Physician Type: Progress Notes Filed: 09/22/2023 14:00 Note Text: Established Patient Ortho Hip Consult Note ASSESSMENT AND PLAN: Impression: Bilateral Hip Severe Degenerative Osteoarthritis, Primary , Right worse than left He was previously scheduled for surgery with Dr. Morin on 08/28. This was ultimately cancelled because the patient was unsure he was ready to move forward with surgery. He wanted to have more information and wanted to do some more research. He had phone call with Dr. Chase and was recommended to see us for further consultation. Pain location: Groin and anterior thigh pain on bilateral legs. This is worse on the right. His range of motion is also worse on the right when compared to the left. He has pain with most activities. Pain with walking, stairs, getting in and out of the car, getting dressed. He also is not able to get his leg up and over onto his motorcycle. Therapy to date - Ice or Heat: ice OTC/Rx Medications (Topical/PO): Meloxicam in the past with very minimal relief -- tooth issue is causing him to take 800 mg ibuprofen that is helping him some the past 3 days. He is due to have 2 root canals - October 17. Brace/Splint: none Assist Device: none Physical Therapy: None formally, he is active and completes his own exercises Injections: He has had 2 injections first lasting 3 months with near complete resolution of symptoms. The injection this past March and he got a couple weeks of relief and it was incomplete. Last injection was about 2 months ago Surgery: none Recent BMI: 26.88 PMHx: Otherwise healthy Denies any medical conditions with heart, lung, kidneys or diabetes Home Situation: He has a 2 year old and 5 year old. He wants to move to his place in [place] soon when he retires. 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 Morin's team. He is here today as a third opinion, having previously scheduled surgery with Dr. Morin but then needing to cancel because of anxiety and concerns about which procedure he should choose. He then met with Dr. Chase, and it is now seeing our team. This entire session was spent counseling, going through the differences between a total hip replacement and hip resurfacing arthroplasty. We have talked through the differences in recovery, approach utilized, restrictions, and national registry data. We have also gone through concerns for metallosis and discussed the differences between a Ariadna hip resurfacing and other products that have been taken off the market due to high failure rates. We have talked about metallurgy and design/geometry of the implants. Ultimately, I do not feel that a total hip replacement is a bad option, and I think that both a hip resurfacing arthroplasty and total hip replacement are reasonable to consider. With that said, he is young, he rides motorcycles, and he wants to be active with his young children. A Abrams hip resurfacing makes a lot of sense, so long as he is not overwhelmed by the anxiety of the small theoretical risk of a metallosis reaction. He seems to be a fairly anxiety ridden individual, and I want to make sure that what ever choice he decides is the least detrimental to his overall anxiety. At present, it seems as if he is still leaning toward a hip resurfacing arthroplasty. He is in excellent hands with Dr. Morin, or my practice would be happy to take care of him as well. He has an upcoming root canal at the end of October 2023, and has plans to spend the summer in [place]. He is thinking he would like to return to [place] and have this operation completed at the end of January or sometime in February 2024. We are generally scheduling 6-8 weeks out, and I would like to see him back in the office to sign a consent. I would be happy to save a date for him should he communicate with us via telephone or MyChart. If he did choose a total hip replacement, I would likely pursue a Microplasty + G7. I spent a total of 30 minutes on the date of the service which included [id number] patient care, completing clinical documentation, obtaining and/or reviewing separately obtained history, performing a medically appropriate examination, counseling and educating the patient/family/caregiver, independently interpreting results (not separately reported), and communicating results to the patient/family/caregiver. The counseled portion is detailed in the plan, as above, that I have personally verified and edited as appropriate. Any information added by medical student, resident, nurse, IMPORT EXPORT MANAGER/PASonu that I have placed my signature directly below I have verifie (more content not included)... [facility] 09-22-2023 History of Presen t illness Narrative Radiology Service Progress Note PATIENT NAME: Sukh Adler DATE OF SERVICE: September 22, 2023 TIME: 11:58 AM PATIENT IDENTITY VERIFICATION COMPLETED USING TWO (2) IDENTIFIERS: Name and Date of confirmed by patient verbally. FALL SCREENING: Has the patient had 2 falls in the last year or 1 fall with injury or currently using an Ambulatory Assistive Device (Walker, Cane, Wheelchair, Crutches, etc.)? No PATIENT GENDER DATA: Male PATIENT RELEVANT IMPLANT DATA REVIEWED: Not Applicable PATIENT PRESENTS WITH AN IMPLANTABLE OR ATTACHED SPINNER FRAME: No RADIOLOGY DEPARTMENT: General X-ray: Exam(s) Completed: Pelvis X-Ray: Pelvis with Hip Right PERIPHERAL IV DATA: Not applicable SIGNED BY: FANI Noel) September 22, 2023 11:58 AM documented in this encounter [facility] 09-22-2023 Note HNO ID: [id number] Author: ZOFIA CESPEDES RT(R) Service: ? Author Type: Technologist Type: Progress Notes Filed: 09/22/2023 11:58 Note Text: Radiology Service Progress Note PATIENT NAME: Sukh Adler DATE OF SERVICE: September 22, 2023 TIME: 11:58 AM PATIENT IDENTITY VERIFICATION COMPLETED USING TWO (2) IDENTIFIERS: Name and Date of confirmed by patient verbally. FALL SCREENING: Has the patient had 2 falls in the last year or 1 fall with injury or currently using an Ambulatory Assistive Device (Walker, Cane, Wheelchair, Crutches, etc.)? No PATIENT GENDER DATA: Male PATIENT RELEVANT IMPLANT DATA REVIEWED: Not Applicable PATIENT PRESENTS WITH AN IMPLANTABLE OR ATTACHED SPINNER FRAME: No RADIOLOGY DEPARTMENT: General X-ray: Exam(s) Completed: Pelvis X-Ray: Pelvis with Hip Right PERIPHERAL IV DATA: Not applicable SIGNED BY: FANI Noel) September 22, 2023 11:58 AM [facility] 09-22-2023 History of Presen t illness Narrative Radiology Service Progress Note DATE OF SERVICE: September 22, 2023 TIME: 9:02 AM PATIENT IDENTITY VERIFICATION COMPLETED USING TWO (2) STANDARD IDENTIFIERS: Name and Date of confirmed by patient verbally. FALL SCREENING: Has the patient had 2 falls in the last year or 1 fall with injury or currently using an Ambulatory Assistive Device (Walker, Cane, Wheelchair, Crutches, etc.)? No PATIENT GENDER DATA: Male PATIENT RELEVANT IMPLANT DATA REVIEWED: Yes PATIENT PRESENTS WITH AN IMPLANTABLE OR ATTACHED SPINNER FRAME: No ALLERGIES: Reviewed and unchanged CONTRAST ALLERGY: NO. EXAM: MRI - CONTRAST TYPE: GROUP II PERIPHERAL IV DATA: Ambulatory: A peripheral IV was started in the Right antecubital site with a Angio cath: 24 gauge. RADIOLOGY DEPARTMENT: MR; Exam(s) Completed: Head: IAC/CPA SIGNATURE: SULEMAN More PATIENT NAME: Sukh Adler DATE: September 22, 2023 TIME: 9:02 AM documented in this encounter [facility] 09-22-2023 Note HNO ID: [id number] Author: LUZ JAMIL CT Service: ? Author Type: Technologist Type: Progress Notes Filed: 09/22/2023 09:22 Note Text: Radiology Service Progress Note DATE OF SERVICE: September 22, 2023 TIME: 9:02 AM PATIENT IDENTITY VERIFICATION COMPLETED USING TWO (2) STANDARD IDENTIFIERS: Name and Date of confirmed by patient verbally. FALL SCREENING: Has the patient had 2 falls in the last year or 1 fall with injury or currently using an Ambulatory Assistive Device (Walker, Cane, Wheelchair, Crutches, etc.)? No PATIENT GENDER DATA: Male PATIENT RELEVANT IMPLANT DATA REVIEWED: Yes PATIENT PRESENTS WITH AN IMPLANTABLE OR ATTACHED SPINNER FRAME: No ALLERGIES: Reviewed and unchanged CONTRAST ALLERGY: NO. EXAM: MRI - CONTRAST TYPE: GROUP II PERIPHERAL IV DATA: Ambulatory: A peripheral IV was started in the Right antecubital site with a Angio cath: 24 gauge. RADIOLOGY DEPARTMENT: MR; Exam(s) Completed: Head: IAC/CPA SIGNATURE: SULEMAN More PATIENT NAME: Sukh Adler DATE: September 22, 2023 TIME: 9:02 AM [facility] 08-07-2023 Note HNO ID: [id number] Author: QUOC GARCIA MD Service: ? Author Type: Physician Type: Progress Notes Filed: 08/07/2023 16:45 Note Text: I have seen and evaluated the patient and discussed the case with the resident physician. I agree with the assessment and plan as documented in the resident?s note. Sukh Adler is a 53 year old male here for evaluation of a(n) L inguinal hernia. Prior surgical history is significant for no major abdominal surgery. Other significant comorbidities include bilateral OA of the hips. On exam, there is a reducible LIH. Plan is for lap LIH repair with mesh. Patient consented for study? Yes STUDY TITLE: No Opioids vs Minimal Opiods for Inguinal Hernia IRB NO.: #[id number] CRITICAL CARE UNIT MANAGER: Humza Vang MD COORDINATOR/Research Nurse/Coordinator Integrated Marketing: Kayce Swanson MD Phone/email: , [email or web address] Consenting was performed by the attending surgeon, in a krry-uw-[id number] manner, during preoperative evaluation at the General Surgery clinic. The study protocol was discussed in detail with the patient. All study procedures were explained to the subject, including randomization, the two possible study interventions for all patients participating in the study. The importance of follow up compliance was stressed. The risks, benefits, alternatives to participation and potential costs were discussed. All patient questions were addressed and answered. Patient has read and understood the study procedures and requirements. Patient has agreed to proceed with trial participation and consent signed. Copy of the signed consent provided to the patient. INCLUSION CRITERIA Yes No 1. The patient is > 18 years of age [x] [] 2. Elective minimally invasive inguinal hernia repair with synthetic mesh [x] [] 3. The patient is willing and able to give written informed consent [x] [] EXCLUSION CRITERIA Yes No 1. The patient lacks Turkish language fluency or cannot understand the consent form/study procedures [] [x] 2. Cannot tolerate general anesthesia [] [x] 3. Cannot tolerate opioids or NSAIDs [] [x] 4. Currently taking opioids for chronic pain management [] [x] 5. Surgery requiring extensive dissection/hernia sac reduction or additional procedures [] [x] 6. Surgery requiring inpatient admission postoperatively [] [x] Quoc Garcia MD August 07, 2023 4:38 PM [facility] 08-07-2023 Note HNO ID: [id number] Author: SUKH CAO MD Service: ? Author Type: Physician Type: Progress Notes Filed: 08/07/2023 14:53 Note Text: SECTION OF OTOLOGY, NEUROTOLOGY AND LATERAL SKULL BASE SURGERY [facility] History of Present Illness: Sukh Adler is a 53 year old male who presents complaining of bilateral tinnitus. More on the left Started about 2-3 years ago High pitched, non pulsatile Continuous, significantly affecting his quality of life Modulates with clenching his jaw No past medical history on file. No past surgical history on file. No current outpatient medications on file prior to visit. No current facility-administered medications on file prior to visit. ALLERGIES Not on File No family history on file. Physical Exam Patient is alert, oriented Head examination: normocephalic Binocular microscopic examination of ears: Right ear: Pinna: normal External canal : patent Tympanic membrane:normal Left ear: Pinna: normal External canal : patent Tympanic membrane :normal Tuning [place] Examination [place] midline Right ear Rinne Positive Left ear Rinne Positive CN VII: Face is symmetric with normal eye closure and smile. Test Results Audiogram AND Tympanogram (personally reviewed) WRS AD: 100 % : 100 % Assessment and Plan Sukh Adler's history, physical examination, and diagnostic studies are consistent with the following diagnoses and associated treatment plan of care. Sensorineural hearing loss (SNHL) of both ears - MRI BRAIN WO/W IVCON; Future Asymmetrical sensorineural hearing loss Tinnitus of both ears - TINNITUS MANAGEMENT CLINIC; Future Other orders - magnesium oxide 400 mg magnesium tab; Take 400 mg by mouth once daily. - vitamin b complex tab; Take 1 tablet by mouth once daily. We discussed obtaining an MRI for the asymmetry. I have encouraged him to reduce caffeine and start magnesium and vitamin B supplementation. I have also placed a referral to the tinnitus management clinic I have answered all of his questions. Signed by: Sukh Cao MD, FACS Section Head, Otology-Neurotology Tugboat Dispatcher, Hearing Implant Program [facility] Ne[facility] Medical Decision Making: Problems: Moderate: 1+ chronic illnesses with change Data: Unique test result(s) reviewed: 1 Unique test(s) ordered: 1 Risk: Low: Low risk from testing/treatment Medical Decision Making Level: 3 - Low [facility] 08-07-2023 Note HNO ID: [id number] Author: KARIME STREETER AUD Service: ? 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 Referral documented: In an order in [facility] Patient's major complaints: Tinnitus in both ears Sukh Adler was seen for an initial audiologic evaluation reporting bilateral tinnitus. Patient reported tinnitus is constant and has been present for the last two years. He reported onset occurred during a period of high emotional stress in his life (his father was ill and hospitalized long-term) and he wonders if this could have been an exacerbating factor. Patient also reported that he is able to modulate the tinnitus with jaw movements and when clenching his teeth. He denied any changes in tinnitus with neck movements, as well as any concerns for issues with the neck or cervical spine. 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 Patient also denied otalgia, otorrhea, aural fullness/pressure, dizziness/vertigo, history of otologic surgery, and ototoxicity. See procedures tab for audiometric results. IMPRESSIONS RIGHT EAR: Sensorineural hearing loss, greater in the right ear than the left ear. LEFT EAR: Sensorineural hearing loss AUDIOLOGIC EVALUATION Following is a brief interpretation of the obtained findings from the audiologic evaluation. Refer to the Auditory Test Record for complete audiometric results. The patient was counseled about the test findings and appropriate audiologic recommendations were made. SUMMARY: See procedures tab for audiometric results. OTOSCOPY RIGHT EAR: Otoscopic inspection revealed ear canal was clear with an identifiable cone of light. LEFT EAR: Otoscopic inspection revealed ear canal was clear with an identifiable cone of light. TYMPANOMETRY Description of procedure: This test is an objective evaluation of middle ear function. CPT code: 17557 RIGHT EAR: Normal ME function. LEFT EAR: Normal ME function. ACOUSTIC REFLEXES Description of procedure: This test is an objective measure of auditory and facial nerve pathways. CPT code: 53128, 16436 RIGHT EAR PROBE EAR: (ipsi right stimulus ear; contralateral left stimulus ear): Acoustic Reflex Pattern Ipsilateral acoustic reflexes were absent at 500-2000 Hz. Contralateral acoustic reflexes were absent at 500-2000 Hz. Acoustic Reflex Decay (left stimulus ear): Did not test. LEFT EAR PROBE EAR: (ipsi left stimulus ear; contralateral right stimulus ear): Acoustic Reflex Pattern Ipsilateral acoustic reflexes present WNL for 500-2000 Hz. Contralateral acoustic reflexes present WNL for 500-2000 Hz. Acoustic Reflex Decay (right stimulus ear):Did not test. Of note, this pattern is consistent with possible facial nerve (CN VII) involvement of the right ear. PURE TONE AUDIOMETRY AND SPEECH TESTING Description of procedure: This test is an objective evaluation hearing sensitivity via air and bone conduction and speech recognition testing. CPT code:82285 RIGHT EAR: Hearing Sensitivity: Essentially within normal limits with mild sensorineural notch noted at 4000 Hz, however significant sensorineural asymmetry noted from 250-1000 Hz. Word Recognition Score: Excellent (100%). WRS is consistent with hearing sensitivity. Words were presented at 60 dB HL is above (greater than or equal to 60 dB HL) intensity level for average conversational speech. The NU-6 Ordered by Difficulty Word List (10 words) was used for testing. Contralateral masking was employed. LEFT EAR: Hearing Sensitivity: Within normal limits through 2000 Hz sloping to mild sensorineural notch at 4000 Hz rising back to within normal limits. Word Recognition Score: Excellent (100%). WRS is consistent with hearing sensitivity. Words were presented at 50 dB HL which approximates (45-55 dB HL) intensity level for average conversational speech. The NU-6 Ordered by Difficulty Word List (10 words) was used for testing. Contralateral masking was employed. RECOMMENDATIONS * Continue medical follow-up with Sukh Cao MD. * Proceed with imaging as recommended by Sukh Cao MD. * Pending medical clearance, patient would likely benefit from use of amplification. * If interested, patient would be a candidate to participate in the Tinnitus Management Clinic. Call [phone] to schedule an appointment in the [facility] Educational Session following medical clearance. * If not interested in [facility], consider scheduled Tinnitus Evaluation with audiology, as well as possible TMD evaluation with dentistry once medically cleared. * Re-evaluation as medically indicated or if a change in hearing is noted. (more content not included)... [facility] 07-14-2023 Instructions Joao Linton RN - 07/14/2023 11:30 AM EST DATE OF SURGERY 08/29/2023 AT [place] [id number] [place] [id number] Pre op packet provided with additional resources and contact information should the patient have any additional questions or concerns Expectations of same day discharge were reviewed with the patient provided physical therapy protocol is met, pain is well controlled and they are medically cleared for discharge PRE-ADMISSION TESTING TO CONTACT YOU FOR MEDICAL AND ANESTHESIA CLEARANCE WITHIN 30 DAYS OF YOUR SURGERY [facility]. TO SCHEDULE PLEASE CALL [facility]. TO SCHEDULE PLEASE CALL Dr Morin will send prescription for mupirocin (Bactroban) ointment to your pharmacy to use 5 days prior to your surgery. Please apply twice daily for 5 days. Apply 0.5 inch ribbon with cotton swab (Q-tip) to each nostril in the morning and evening for 5 days prior to and including day of surgery. This will help prevent staph infection. documented in this encounter [facility] 07-14-2023 Note HNO ID: [id number] Author: LEEANN MORIN, DO Service: ? Author Type: Physician Type: Progress Notes Filed: 07/14/2023 12:58 Note Text: CONSULT ORTHOPAEDIC: HIP PRIMARY CARE PHYSICIAN: No primary care provider on file. REFERRING PROVIDER: SELF ASSESSMENT AND PLAN Subjective: Patient is relatively healthy 53-year-old male presenting for evaluation of bilateral hip pain, with right much worse than left. Patient has had the symptoms for greater than a year and has been treated in the past with intra-articular injections. He has had 2 injections first lasting 2 months with near complete resolution of symptoms. The last injection was this past March and he got a couple weeks of relief and it was incomplete. He has tried wdlb-umr-uynsoce NSAIDs and meloxicam with minimal relief. He has not tried physical therapy but is still active and performs his own exercises. He denies any low back pain, numbness or tingling in any extremity. Patient is fairly active and would like to maintain this level activity. Patient denies any medical conditions with heart, lung, kidneys or diabetes. Denies tobacco use. Exam: NVI, 0-80 hip flexion, positive Stinchfield, 0 IR 5 ER both with pain in the groin expressed Imaging: XR right hip demonstrating severe osteoarthritis with cam deformity and by polar osteophytes. Subchondral sclerosis about the acetabulum with severe joint space narrowing in the weightbearing portion of the acetabulum. Plan: BHR, ASA Impression: Bilateral Hip Severe Degenerative Osteoarthritis, Primary Diagnoses: (M16.11) Primary osteoarthritis of right hip (primary encounter diagnosis) Based upon the evaluation today and after discussions with Sukh Adler, Sukh Adler has significant, worsening pain at the hip. This pain is increased with activity and weight bearing, and interferes with activities of daily living. These symptoms have continued despite a number of non-surgical measures, including a trial of oral pain medication (for at least 12 weeks). At this point, the patient will not benefit from further PT due to the severity of their condition. The patient's physical examination is consistent with limitations in range of motion, pain with passive range of motion, and an antalgic gait. These examination findings are corroborated by imaging findings of joint space narrowing, periarticular osteophyte formation, and subchondral sclerosis. The patient has been treated by the practice and all reasonable treatments have failed to control the disease, which causes significant pain and limits activities of daily living. The patient has failed conservative treatment and joint replacement surgery was discussed and agreed upon by both provider and patient. The patient has elected to proceed with surgical management to improve function and relieve pain refractory to non-surgical measures: right Ariadna hip resurfacing as evidenced by proximal femoral bone geometry and bone quality are sufficient for hip resurfacing, and the patient would otherwise recieve a conventional primary total hip replacement and six months of unsuccessful non-operative treatment as outlined in the HPI below. We had a lengthy discussion regarding the risk and benefit of surgery, the alternatives, limitations and personnel involved. These included but were not limited to infection, persistent pain, instability, nerve injury, blood clots, and medical complications. We also discussed the pre-operative course, surgery itself and rehabilitation. Cate-operative blood management and transfusion issues were discussed, and options clearly outlined. The patient has consented to the use of the banked allogenic blood if medically necessary. The patient has elected to schedule surgery at this time or intends to call the office with a surgical date. Shared decision making occurred while obtaining informed consent. The patient will be scheduled for a pre-operative education class at which time they will have their nasal swab completed and will be given CHG cloths along with the verbal and written instructions for their use. The patient has been ordered: Office Visit on 07/14/23 XR HIP GENERAL 3V PELV/AP/LAT RIGHT No orders placed today. CONSULTS: IMPACT/PACE Consult for preoperative clearance. Total Joint Arthroplasty: Risk Calculator Sukh Adler has a 2.53% chance of NOT returning home at discharge for a Primary total Hip replacement. Sukh's estimated Length of Stay is 1 day (Outpatient candidate). Sukh's 30 day chance of readmission is 1.04%. Readmission Probability 1.04 % (within 30 days following surgery) Estimated LOS 1 day Discharge Disposition Probability D/C to Home 97.47 % D/C to SNF 2.53 % These calculations are based on the following factors: - 53 years of age - sex is male - BMI of 31 kg/m2 - NarxCare score of 0 - 0 hospitalizations in the last 12 months - no history o (more content not included)... [facility] 07-14-2023 History of Presen t illness Narrative CONSULT ORTHOPAEDIC: HIP PRIMARY CARE PHYSICIAN: No primary care provider on file. REFERRING PROVIDER: SELF ASSESSMENT & PLAN Subjective: Patient is relatively healthy 53-year-old male presenting for evaluation of bilateral hip pain, with right much worse than left. Patient has had the symptoms for greater than a year and has been treated in the past with intra-articular injections. He has had 2 injections first lasting 2 months with near complete resolution of symptoms. The last injection was this past March and he got a couple weeks of relief and it was incomplete. He has tried ctmq-zce-gphwlxk NSAIDs and meloxicam with minimal relief. He has not tried physical therapy but is still active and performs his own exercises. He denies any low back pain, numbness or tingling in any extremity. Patient is fairly active and would like to maintain this level activity. Patient denies any medical conditions with heart, lung, kidneys or diabetes. Denies tobacco use. Exam: NVI, 0-80 hip flexion, positive Stinchfield, 0 IR 5 ER both with pain in the groin expressed Imaging: XR right hip demonstrating severe osteoarthritis with cam deformity and by polar osteophytes. Subchondral sclerosis about the acetabulum with severe joint space narrowing in the weightbearing portion of the acetabulum. Plan: BHR, ASA Impression: Bilateral Hip Severe Degenerative Osteoarthritis, Primary Diagnoses: (M16.11) Primary osteoarthritis of right hip (primary encounter diagnosis) Based upon the evaluation today and after discussions with Sukh Adler, Sukh Adler has significant, worsening pain at the hip. This pain is increased with activity and weight bearing, and interferes with activities of daily living. These symptoms have continued despite a number of non-surgical measures, including a trial of oral pain medication (for at least 12 weeks). At this point, the patient will not benefit from further PT due to the severity of their condition. The patient's physical examination is consistent with limitations in range of motion, pain with passive range of motion, and an antalgic gait. These examination findings are corroborated by imaging findings of joint space narrowing, periarticular osteophyte formation, and subchondral sclerosis. The patient has been treated by the practice and all reasonable treatments have failed to control the disease, which causes significant pain and limits activities of daily living. The patient has failed conservative treatment and joint replacement surgery was discussed and agreed upon by both provider and patient. The patient has elected to proceed with surgical management to improve function and relieve pain refractory to non-surgical measures: right Ariadna hip resurfacing as evidenced by proximal femoral bone geometry and bone quality are sufficient for hip resurfacing, and the patient would otherwise recieve a conventional primary total hip replacement and six months of unsuccessful non-operative treatment as outlined in the HPI below. We had a lengthy discussion regarding the risk and benefit of surgery, the alternatives, limitations and personnel involved. These included but were not limited to infection, persistent pain, instability, nerve injury, blood clots, and medical complications. We also discussed the pre-operative course, surgery itself and rehabilitation. Cate-operative blood management and transfusion issues were discussed, and options clearly outlined. The patient has consented to the use of the banked allogenic blood if medically necessary. The patient has elected to schedule surgery at this time or intends to call the office with a surgical date. Shared decision making occurred while obtaining informed consent. The patient will be scheduled for a pre-operative education class at which time they will have their nasal swab completed and will be given CHG cloths along with the verbal and written instructions for their use. The patient has been ordered: Office Visit on 07/14/23 XR HIP GENERAL 3V PELV/AP/LAT RIGHT No orders placed today. CONSULTS: IMPACT/PACE Consult for preoperative clearance. Total Joint Arthroplasty: Risk Calculator Sukh Adler has a 2.53% chance of NOT returning home at discharge for a Primary total Hip replacement. Sukh's estimated Length of Stay is 1 day (Outpatient candidate). Sukh's 30 day chance of readmission is 1.04%. Readmission Probability 1.04 % (within 30 days following surgery) Estimated LOS 1 day Discharge Disposition Probability D/C to Home 97.47 % D/C to SNF 2.53 % These calculations are based on the following factors: - 53 years of age - sex is male - BMI of 31 kg/m2 - NarxCare score of 0 - 0 hospitalizations in the last 12 months - no history of heart disease - no history of diabetes - no history of COPD - no history of anemia - preoperative ambulation: independent community distances - 3 step(s) to enter home - bed location is on the first floor - bath location is on the first floor - caregiver is consistent - home is not more than 150 miles away - PROMIS-10 Mental Health T score 50+ - Marital status: other Risk Factors for Total Knee Arthroplasty (TKA) Major Risk Factors Obesity Unknown Risk High: BMI > 40 Moderate: BMI 30-40 Normal: BMI < 30 Diabetes normal High: A1C > 8 Moderate: A1C 7-8 Normal: A1C < 7 Hx of DVT / PE normal High: dx of DVT / PE Normal: no dx of DVT / PE Smoking normal High: Current smoker Normal: Non smoker Narcotics Use normal High:NarxCare >=300 Moderate: 100-299 Normal: 0-99 Depression normal High: PHQ-9 >14 Moderate: PHQ-9 5-14 Normal: PHQ-9 < 5 Area Deprivation Index (MIKAELA) Unknown Risk High: MIKAELA Score > 75 Moderate: MIKAELA 50-75 Normal: MIKAELA < 50 Obesity: height and/or weight are out of date (There is no height and/or weight reading in the past 365 days, so the below BMI readings may be inaccurate) BMI Readings from Last 3 Encounters: No data found for BMI Area Deprivation Index (MIKAELA) No flowsheet data found. Patient Health Questionnaire (PHQ-9) PHQ-9 07/13/2023 PHQ-2 Score 0 (0-4) minimal depression, (5-9) mild depression, (10-14) moderate depression, (15-19) moderately severe depression, (20-27) severe depression Bone Density Risk Screen Sukh Adler is low risk for bone loss based on his age and having no previous diagnoses of osteopenia, osteoporosis, Paget's disease of bone, or cancer of bone. Other risk factors are listed below to determine if they pose a significant risk for bone loss, and if so, recommend ordering a bone densitometry and, upon receiving a result, as needed, order a consult to a bone health specialist (Rheumatology, Endocrinology, or Women's Health) for bone assessment. Risk Factors: Additional Risk Factors Malnutrition: No Malnutrition Screening Tool (MST) score on file- please complete the MST screening tool (click here to open) and refresh the note. ACTIVE PROBLEM LIST Osteoarthritis of Left Hip Osteoarthritis Resulting From Right Hip Dysplasia Primary Osteoarthritis of Right Hip Varicocele SUBJECTIVE CHIEF COMPLAINT: Hip Pain HPI: Sukh Adler is a 53 year old patient . 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 The problem began limiting activities 7-12 months ago. Sukh reports a current pain level of 7 (Hip-Right). He describes the pain as Aching, Sore. The pain is Intermittent, and has lasted for 2 Years. Interventions tried include Medication, Reposition, Relaxation. Shots in both hips twice. FALL RISK: Sukh is not currently at risk for falls. PROMIS Physical Function Score PROMIS CAT Physical Function 07/13/2023 T-Score 43 (mild dysfunction) Percentile 24* FUNCTIONAL STATUS: Walk indoors, such as around the house (1.75 METs) Do light work around the house, such as dusting or washing dishes (2.70 METs) Take care of self, that is eating, dressing, bathing, using the toilet (2.75 METs) Walk a block or two on level ground (2.75 METs) Do moderate work around the house such as vacuuming, sweeping floors, or carrying in groceries (3.50 METs) Do yardwork, such as raking leaves, weeding,or pushing a power mower (4.50 METs) Climb a flight of stairs or walk up a hill (5.50 METs) PREVIOUS TREATMENTS: Attempted Weight Loss Medical: OTC NSAIDS for 3 Months or Greater (Ibuprofen and Tylenol / acetaminophen), RX NSAIDS for 3 Months or Greater (meloxicam (Mobic)), Steroid Injections Left Hip, Steroid Injections Right Hip REVIEW OF SYSTEMS: PAIN ASSESSMENT: See HPI. MUSCULOSKELETAL: See HPI. No flowsheet data found. No past medical history on file. No past surgical history on file. No family history on file. ALLERGIES: Patient has no allergy information on record. MEDICATIONS: No prescriptions on file. OBJECTIVE PHYSICAL EXAM There were no vitals taken for this visit. All other systems deferred. BACK EXAM: Adequate flexion and extension, negative straight leg raise test bilaterally. GENERAL: Appears healthy, well-nourished, no deformities. HABITUS: Normal GAIT: Normal, the patient did not have trouble getting onto the exam table. HIP EXAM: Right: ROM: Extension: Normal Flexion: 110 degrees Internal Rotation: 30 degrees External Rotation: 30 degrees Abduction: 40 degrees Adduction: 30 degrees Strength: Abduction 5/5 and Flexion 5/5 Palpation: No tenderness Log roll: non-painful. Straight leg raise: Negative Neurovascular Status: Sensation Intact and Moves foot and ankle up & down DATA: Diagnostic tests reviewed for today's visit: Right hip X-Ray: Severe degenerative changes, Severe loss of superior joint space , Evidence of Avascular Necrosis without Collapse, and Osteophytes The following conditions were addressed during the office visit today: N/a SIGNATURE: Leeann Morin DO PATIENT NAME: Sukh Adler DATE: July 14, 2023 TIME: 11:01 AM documented in this encounter [facility] 07-14-2023 History of Presen t illness Narrative Radiology Service Progress Note PATIENT NAME: Sukh Adler DATE OF SERVICE: July 14, 2023 TIME: 9:56 AM PATIENT IDENTITY VERIFICATION COMPLETED USING TWO (2) IDENTIFIERS: Name and Date of confirmed by patient verbally and Name and Date of confirmed by identification band. FALL SCREENING: Has the patient had 2 falls in the last year or 1 fall with injury or currently using an Ambulatory Assistive Device (Walker, Cane, Wheelchair, Crutches, etc.)? No PATIENT GENDER DATA: Male PATIENT RELEVANT IMPLANT DATA REVIEWED: Not Applicable PATIENT PRESENTS WITH AN IMPLANTABLE OR ATTACHED SPINNER FRAME: No RADIOLOGY DEPARTMENT: General X-ray: Exam(s) Completed: Pelvis X-Ray: Pelvis with Hip Right PERIPHERAL IV DATA: Not applicable SIGNED BY: RT Trisha(Rose) July 14, 2023 9:56 AM documented in this encounter [facility] 07-14-2023 Note HNO ID: [id number] Author: MIKAYLA TRAN RT(R) Service: ? Author Type: Technologist Type: Progress Notes Filed: 07/14/2023 09:59 Note Text: Radiology Service Progress Note PATIENT NAME: Sukh Adler DATE OF SERVICE: July 14, 2023 TIME: 9:56 AM PATIENT IDENTITY VERIFICATION COMPLETED USING TWO (2) IDENTIFIERS: Name and Date of confirmed by patient verbally and Name and Date of confirmed by identification band. FALL SCREENING: Has the patient had 2 falls in the last year or 1 fall with injury or currently using an Ambulatory Assistive Device (Walker, Cane, Wheelchair, Crutches, etc.)? No PATIENT GENDER DATA: Male PATIENT RELEVANT IMPLANT DATA REVIEWED: Not Applicable PATIENT PRESENTS WITH AN IMPLANTABLE OR ATTACHED SPINNER FRAME: No RADIOLOGY DEPARTMENT: General X-ray: Exam(s) Completed: Pelvis X-Ray: Pelvis with Hip Right PERIPHERAL IV DATA: Not applicable SIGNED BY: FANI Rico) July 14, 2023 9:56 AM [facility] Evaluation note Diagnosis Onset Date Screening for colorectal cancer [facility] Work Phone: Evaluation note* Diagnosis Primary osteoarthritis of right hip- Primary Primary localized osteoarthrosis, pelvic region and thigh [facility] Diagnosis Primary osteoarthritis of right hip- Primary Primary localized osteoarthrosis, pelvic region and thigh Anemia, unspecified type documented in this encounter [facility] note* Diagnosis Preoperative examination- Primary Preoperative examination, unspecified Non-recurrent unilateral inguinal hernia without obstruction or gangrene Preoperative examination Preoperative examination, unspecified Non-recurrent unilateral inguinal hernia without obstruction or gangrene documented in this encounter [facility] note* Diagnosis Primary osteoarthritis of right hip- Primary Primary localized osteoarthrosis, pelvic region and thigh Preoperative examination Preoperative examination, unspecified Non-recurrent unilateral inguinal hernia without obstruction or gangrene documented in this encounter [facility] note* Diagnosis Primary osteoarthritis of both hips- Primary Primary localized osteoarthrosis, pelvic region and thigh documented in this encounter [facility] note* Diagnosis Primary osteoarthritis of right hip Primary localized osteoarthrosis, pelvic region and thigh documented in this encounter [facility] note* Diagnosis Sensorineural hearing loss (SNHL) of right ear with unrestricted hearing of left ear- Primary documented in this encounter [facility] note* Diagnosis Tinnitus of both ears- Primary Unspecified tinnitus Preoperative examination Preoperative examination, unspecified Non-recurrent unilateral inguinal hernia without obstruction or gangrene Preoperative examination Preoperative examination, unspecified Non-recurrent unilateral inguinal hernia without obstruction or gangrene documented in this encounter [facility] note* Diagnosis Post-operative state- Primary Other postprocedural status documented in this encounter [facility] note* Diagnosis Sensorineural hearing loss (SNHL) of both ears documented in this encounter [facility] note* Diagnosis Primary osteoarthritis of right hip Primary localized osteoarthrosis, pelvic region and thigh documented in this encounter [facility] for referral (narrative)* Diagnostic Procedure Only (Routine) - Closed Specialty Diagnoses / Procedures Referred By Karine t Referred To Contact XR IMAGING Diagnoses Primary osteoarthritis of right hip Procedures XR HIP GENERAL 3V PELV/AP/LAT RIGHT RADEX HIP UNILATERAL WITH PELVIS 2-3 VIEWS Leeann Morin, DO [address] [place] [address] [place] [address] Referral ID Status Reason Start Date Expiration Date V isits Requested Visits Authorized [id number] Closed Auto-Generate d Referral 07/14/2023 06/11/2024 1 1 [facility] for referral (narrative)* Diagnostic Procedure Only (Routine) - Pending Review Specialty Diagnoses / Procedures Referred By Contac t Referred To Contact XR IMAGING Diagnoses Primary osteoarthritis of right hip Procedures XR HIP GENERAL 3V PELV/AP/LAT RIGHT RADEX HIP UNILATERAL WITH PELVIS 2-3 VIEWS Leeann Morin, DO [address] [place] [address] [place] [address] Referral ID Status Reason Start Date Expiration Date Visits Requested Visits Authorized [id number] Pending Review Auto-Generat ed Referral 07/14/2023 08/12/2024 1 1 * Physical Therapy (Routine) - Pending Review Specialty Diagnoses / Procedures Referred By Contac t Referred To Contact [facility] Diagnoses Primary osteoarthritis of right hip Procedures CONSULT TO PHYSICAL THERAPY PHYSICAL THERAPY EVALUATION HIGH COMPLEX 45 MINS Leeann Morin DO [address] [place] [address] [facility] [address] [address] Referral ID Status Reason Start Date Expiration Date Visits Requested Visits Authorized [id number] Pending Review Auto-Generat ed Referral 08/29/2023 07/13/2024 1 1 * Diagnostic Procedure Only (Routine) - Pending Review Specialty Diagnoses / Procedures Referred By Contac t Referred To Contact XR IMAGING Diagnoses Primary osteoarthritis of right hip Procedures XR HIP GENERAL 3V PELV/AP/LAT RIGHT RADEX HIP UNILATERAL WITH PELVIS 2-3 VIEWS Leeann Morin DO [address] [place] [address] [place] [address] Referral ID Status Reason Start Date Expiration Date Visits Requested Visits Authorized [id number] Pending Review Auto-Generat ed Referral 07/14/2023 08/12/2024 1 1 * Outpatient Procedure (Routine) - Pending Review Specialty Diagnoses / Procedures Referred By Contac t Referred To Contact [facility] Diagnoses Primary osteoarthritis of right hip Procedures ECG COMPLETE ECG ROUTINE ECG W/LEAST 12 LDS W/I&R Leeann Morin DO [address] [place] [address] [facility] [address] [place] [id number] Referral ID Status Reason Start Date Expiration Date Visits Requested Visits Authorized [id number] Pending Review Auto-Generat ed Referral 07/14/2023 07/13/2024 1 1 [facility] for referral (narrative)* Diagnostic Procedure Only (Routine) - Pending Review Specialty Diagnoses / Procedures Referred By Contac t Referred To Contact XR IMAGING Diagnoses Primary osteoarthritis of right hip Procedures XR HIP 2V AP/LAT RIGHT (AK,FL,ME,UN) RADEX HIP UNILATERAL WITH PELVIS 2-3 VIEWS Rachel Ontiveros MD [address] [place] [address] Xr Imaging [facility]95 Referral ID Status Reason Start Date Expiration Date Visits Requested Visits Authorized [id number] Pending Review Auto-Generat ed Referral 08/18/2023 09/16/2024 1 1 [facility] for referral (narrative)* Diagnostic Procedure Only (Routine) - Closed Specialty Diagnoses / Procedures Referred By Contac t Referred To Contact XR IMAGING Diagnoses Primary osteoarthritis of right hip Procedures XR HIP 2V AP/LAT RIGHT (AK,FL,ME,UN) RADEX HIP UNILATERAL WITH PELVIS 2-3 VIEWS Rachel Ontiveros MD [address] [place] [address] [place] [address] Referral ID Status Reason Start Date Expiration Date V isits Requested Visits Authorized [id number] Closed Auto-Generate d Referral 08/18/2023 09/16/2024 1 1 [facility] for referral (narrative)* Diagnostic Procedure Only (Routine) - Closed Specialty Diagnoses / Procedures Referred By Contac t Referred To Contact XR IMAGING Diagnoses Primary osteoarthritis of right hip Procedures XR HIP GENERAL 3V PELV/AP/LAT RIGHT RADEX HIP UNILATERAL WITH PELVIS 2-3 VIEWS Leeann Morin, DO [address] [place] [address] [place] [address] Referral ID Status Reason Start Date Expiration Date V isits Requested Visits Authorized [id number] Closed Auto-Generate d Referral 07/14/2023 06/11/2024 1 1 [facility] for visit Narrative* Diagnostic Procedure Only (Routine) - Closed Specialty Diagnoses / Procedures Referred By Contac t Referred To Contact XR IMAGING Diagnoses Primary osteoarthritis of right hip Procedures XR HIP GENERAL 3V PELV/AP/LAT RIGHT RADEX HIP UNILATERAL WITH PELVIS 2-3 VIEWS Leeann Morin, DO [address] [place] [address] [place] [address] Referral ID Status Reason Start Date Expiration Date V isits Requested Visits Authorized [id number] Closed Auto-Generate d Referral 07/14/2023 06/11/2024 1 1 [facility] Summary Purpose Family History No Family History Records Found Relationship Condition Age at Onset Recorded Date/T madeline father Chronic obstructive pulmonary disease Unk nown Advance Directives No Advanced Directives Records Found Advance Directive Response Recorded Date/ Time Advance Directives No January 17 1:24pm Chief Complaint and Reason for Visit Chief Complaint Screening Screening Reason for Visit Screening for colore ctal cancer Reason for Referral Specialty Diagnoses / Procedures Referred By Contac t Referred To Contact Diagnoses Preoperative examination Non-recurrent unilateral inguinal hernia without obstruction or gangrene Procedures VIRTUAL CONSULT TO PAC Kayce Velazquez APRN.IMPORT EXPORT MANAGER [address] [place], [place] [id number] Referral ID Status Reason Start Date Expiration Date Visits Requested Visits Authorized [id number] Ref Not Required PCP Requested Referral 08/10/2023 11/07/2023 1 1 Specialty Diagnoses / Procedures Referred By Contac t Referred To Contact [facility] Diagnoses Preoperative examination Non-recurrent unilateral inguinal hernia without obstruction or gangrene Procedures ECG COMPLETE ECG ROUTINE ECG W/LEAST 12 LDS W/I&R Kayce Velazquez, STREET COMMISSIONER.IMPORT EXPORT MANAGER [address] [place] [address] [facility] [address] [place] [id number] Referral ID Status Reason Start Date Expiration Date Visits Requested Visits Authorized [id number] Pending Review Auto-Generat ed Referral 08/10/2023 08/08/2024 1 1 Specialty Diagnoses / Procedures Referred By Rikkiac t Referred To Contact Diagnoses Preoperative examination Non-recurrent unilateral inguinal hernia without obstruction or gangrene Procedures CONSULT TO [facility]IC[facility] OFFICE/OUTPATIENT [facility] 60 MINUTES Kayce Velazquez, STREET COMMISSIONER.IMPORT EXPORT MANAGER [address] [place] [id number] Referral ID Status Reason Start Date Expiration Date Visits Requested Visits Authorized [id number] Pending Review PCP Requested Referral 08/10/2023 08/08/2024 1 1 Specialty Diagnoses / Procedures Referred By Rikkiac t Referred To Contact MR IMAGING Diagnoses Sensorineural hearing loss (SNHL) of right ear with unrestricted hearing of left ear Procedures MRI BRAIN WO/W IVCON MRI BRAIN BRAIN STEM W/O W/[place] [address] [place], [place] [id number] [facility] [place] [address] Referral ID Status Reason Start Date Expiration Date Visits Requested Visits Authorized [id number] Pending Review Auto-Generat ed Referral 10/26/2024 1 1 Specialty Diagnoses / Procedures Referred By Rikkiac t Referred To Contact MR IMAGING Diagnoses Sensorineural hearing loss (SNHL) of both ears Procedures MRI BRAIN WO/W IVCON MRI BRAIN BRAIN STEM W/O W/CONTRAST MATERIAL Sukh Cao MD [address] [place] [id number] [facility]95 Referral ID Status Reason Start Date Expiration Date V isits Requested Visits Authorized [id number] Closed Auto-Generate d Referral 08/07/2023 09/05/2024 1 1 Additional Source Comments (unrecognized sect ion and content) No Status Records FoundNo Status Records FoundNo Status Records FoundNo Status Records Found INFORMATION SOURCE (unrecogn ized section and content) DATE CREATED AUTHOR 01/24/2022 [facility] DATE CREATED AUTHOR AUTHOR'S ORGANIZ ATION 10/25/2022 [facility] DATE CREATED AUTHOR AUTHOR'S ORGANIZ ATION 11/18/2023 [facility] DATE CREATED AUTHOR AUTHOR'S ORGANIZ ATION 02/23/2024 [facility] dical Specialists EPIC Care Teams (unrecognized sec tion and content) Team Status: Inactive Member Role Status Dates Mirela Morgan DO Attending Provider Active Mirela Gregory MD Primary Care Provider Active Team Status: Active Member Role Status Dates Mirela Gregory MD Primary Care Provider Active Home Service Director Relationship Specialty Start Date End Date de Mirela Etienne [address] [place] [address] PCP - General Family Medicine 10/10/23 Home Service Director Relationship Specialty Start Date End Date de Mirela Etienne [address] [place] [address] PCP - General Family Medicine 10/10/23 Home Service Director Relationship Specialty Start Date End Date de Mirela Etienne [address] [place] [address] PCP - General Family Medicine 10/10/23 Home Service Director Relationship Specialty Start Date End Date de Mirela Etienne PCP - General Family Medicine 10/10/23 Source Comments (unrecognize d section and content) In the event this informatio n is protected by the Federal Confidentiality of Alcohol and Drug Abuse Patient Records regulations: The Federal rules restrict any use of the information to criminally investigate or prosecute any alcohol or drug abuse patient.[facility] the event this information is protected by the Federal Confidentiality of Alcohol and Drug Abuse Patient Records regulations: The Federal rules restrict any use of the information to criminally investigate or prosecute any alcohol or drug abuse patient.[facility] the event this information is protected by the Federal Confidentiality of Alcohol and Drug Abuse Patient Records regulations: The Federal rules restrict any use of the information to criminally investigate or prosecute any alcohol or drug abuse patient.[facility] the event this information is protected by the Federal Confidentiality of Alcohol and Drug Abuse Patient Records regulations: The Federal rules restrict any use of the information to criminally investigate or prosecute any alcohol or drug abuse patient.[facility] the event this information is protected by the Federal Confidentiality of Alcohol and Drug Abuse Patient Records regulations: The Federal rules restrict any use of the information to criminally investigate or prosecute any alcohol or drug abuse patient.[facility] the event this information is protected by the Federal Confidentiality of Alcohol and Drug Abuse Patient Records regulations: The Federal rules restrict any use of the information to criminally investigate or prosecute any alcohol or drug abuse patient.[facility] the event this information is protected by the Federal Confidentiality of Alcohol and Drug Abuse Patient Records regulations: The Federal rules restrict any use of the information to criminally investigate or prosecute any alcohol or drug abuse patient.[facility] the event this information is protected by the Federal Confidentiality of Alcohol and Drug Abuse Patient Records regulations: The Federal rules restrict any use of the information to criminally investigate or prosecute any alcohol or drug abuse patient.[facility] the event this information is protected by the Federal Confidentiality of Alcohol and Drug Abuse Patient Records regulations: The Federal rules restrict any use of the information to criminally investigate or prosecute any alcohol or drug abuse patient.[facility] the event this information is protected by the Federal Confidentiality of Alcohol and Drug Abuse Patient Records regulations: The Federal rules restrict any use of the information to criminally investigate or prosecute any alcohol or drug abuse patient.[facility] the event this information is protected by the Federal Confidentiality of Alcohol and Drug Abuse Patient Records regulations: The Federal rules restrict any use of the information to criminally investigate or prosecute any alcohol or drug abuse patient.[facility] the event this information is protected by the Federal Confidentiality of Alcohol and Drug Abuse Patient Records regulations: The Federal rules restrict any use of the information to criminally investigate or prosecute any alcohol or drug abuse patient.[facility] the event this information is protected by the Federal Confidentiality of Alcohol and Drug Abuse Patient Records regulations: The Federal rules restrict any use of the information to criminally investigate or prosecute any alcohol or drug abuse patient.[facility] Reason for Visit (unrecogniz ed section and content) Specialty Diagnoses / Procedures Referred By Contac t Referred To Contact Orthopedics / ORTHOPAEDIC SURGERY Diagnoses rt hip deformity at top of ball - discuss hip resurfacing Procedures ANITA NEW HIP RESURFACING Self Leeann Morin, DO [address] [place] [address] Referral ID Status Reason Start Date Expiration Date Visits Re quested Visits Authorized [id number] Closed 07/14/2023 06/11/2024 1 1 Reason Comments 05.17.24 Cure Lap Left Inguinal He rnia Repair 1.5 hours los 0 Reason Comments New Pain Specialty Diagnoses / Procedures Referred By Contac t Referred To Contact Orthopedics / ORTHOPAEDIC SURGERY Diagnoses Bilateral hip pain BHR consult Bilateral hip pain - right side is worse Procedures ANITA NEW HIP RESURFACING Self Rachel Ontiveros MD [address] [place] [address] Referral ID Status Reason Start Date Expiration Date Visits Re quested Visits Authorized [id number] Closed 09/22/2023 06/11/2024 1 1 Reason Comments Radio Gen A21 Specialty Diagnoses / Procedures Referred By Contac t Referred To Contact XR IMAGING Diagnoses Primary osteoarthritis of right hip Procedures XR HIP GENERAL 3V PELV/AP/LAT RIGHT RADEX HIP UNILATERAL WITH PELVIS 2-3 VIEWS Leeann Morin, DO [address] [place] [address] [place] [address] Referral ID Status Reason Start Date Expiration Date V isits Requested Visits Authorized [id number] Closed Auto-Generate d Referral 09/22/2023 06/11/2024 1 1 Reason Comments Anesthesia Consult Specialty Diagnoses / Procedures Referred By Contac t Referred To Contact Diagnoses Preoperative examination Non-recurrent unilateral inguinal hernia without obstruction or gangrene Procedures VIRTUAL CONSULT TO PACC Kayce Velazquez APRN.IMPORT EXPORT MANAGER [address] [place] [id number] Referral ID Status Reason Start Date Expiration Date Visits Requested Visits Authorized [id number] Ref Not Required PCP Requested Referral 08/10/2023 11/07/2023 1 1 Reason Comments Post Op Reason Comments Radiology MRI Specialty Diagnoses / Procedures Referred By Contac t Referred To Contact MR IMAGING Diagnoses Sensorineural hearing loss (SNHL) of both ears [H90.3] Procedures MRI BRAIN W/WO CONTRAST Sukh Cao MD [id number] [place] [address] Referral ID Status Reason Start Date Expiration Date V isits Requested Visits Authorized [id number] Closed OON/Self Pay Override 09/22/2023 06/11/2024 1 1 FOR RECORDS PERTAINING TO PATIENTS WHO ARE OR HAVE BEEN ENROLLED IN A CHEMICAL DEPENDENCY/SUBSTANCEABUSE PROGRAM, SOME INFORMATION MAY BE OMITTED. This clinical summary was aggregated from multiple sources. Caution should be exercised in using it in the provision of clinical care. This summary normalizes information from multiple sources, and as a consequence, information in this document may materially change the coding, format and clinical context of patient data. In addition, data may be omitted in some cases. CLINICAL DECISIONS SHOULD BE BASED ON THE PRIMARY CLINICAL RECORDS. [employer] provides no warranty or guarantee of the accuracy or completeness of information in this document.
--- NOTE | 2024-03-08 13:23 | FL_ITS ---
[address] [address] Patient Name: SUKH ADLER MRN: [id number] date: 1970 Sex: M Assigned Patient Location: [place] Current Patient Location: Accession/Order Number: [id number] Exam Date: 03/08/2024 13:50 Report Date: 03/08/2024 15:25 At the request of: KATELIN BASURTO Procedure: FL guided needle placement EXAMINATION: FL hip inj [place], FL guided needle placement HISTORY: Bilateral Primary Osteoarthritis M16.0 COMPARISON: No relevant comparison available. FLUOROSCOPY TIME: 1 minute 8 seconds; 2 images TECHNIQUE: A joint injection was performed in the usual sterile manner after obtaining informed consent. Standard level fluoroscopic mode of operation utilized. FINDINGS: JOINT: Right hip NEEDLE: 22 gauge, 3.5 spinal needle. MEDICATION: 2cc buffered 1% lidocaine for subcutaneous anesthesia. 2cc Omnipaque-240 iodinated contrast to visualize the joint space. Mixture of Kenalog 40 mg, 0.5% Bupivacaine 2 mL and Omnipaque 240 3mL was injected into the joint space. TECHNIQUE: Anterior approach. A single stick was successful in gaining access to the joint space. CLINICAL: Decreased pain following injection. (4/10 preinjection; 1/10 post injection) COMPLICATIONS: None. OTHER: Negative. FL/FL guided needle placement IMPRESSION: Successful right hip injection. JOINT: Left hip NEEDLE: 22 gauge, 3.5 spinal needle. MEDICATION: 2cc buffered 1% lidocaine for subcutaneous anesthesia. 2cc Omnipaque-240 iodinated contrast to visualize the joint space. Mixture of Kenalog 40 mg, 0.5% Bupivacaine 2 mL and Omnipaque 240 3mL was injected into the joint space. TECHNIQUE: Anterior approach. A single stick was successful in gaining access to the joint space. CLINICAL: Decreased pain following injection. (4/10 preinjection; 1/10 post injection) COMPLICATIONS: None. OTHER: Negative. IMPRESSION: Successful left hip injection. Electronically authenticated by: JENNIFER MULLINS Date: 03/08/2024 15:25
--- NOTE | 2024-03-08 13:23 | FL_ITS ---
[address] [address] Patient Name: SUKH ADLER MRN: [id number] date: 1970 Sex: M Assigned Patient Location: [place] Current Patient Location: Accession/Order Number: [id number] Exam Date: 03/08/2024 13:50 Report Date: 03/08/2024 15:25 At the request of: KATELIN BASURTO Procedure: FL hip inj [place] EXAMINATION: FL hip inj [place], FL guided needle placement HISTORY: Bilateral Primary Osteoarthritis M16.0 COMPARISON: No relevant comparison available. FLUOROSCOPY TIME: 1 minute 8 seconds; 2 images TECHNIQUE: A joint injection was performed in the usual sterile manner after obtaining informed consent. Standard level fluoroscopic mode of operation utilized. FINDINGS: JOINT: Right hip NEEDLE: 22 gauge, 3.5 spinal needle. MEDICATION: 2cc buffered 1% lidocaine for subcutaneous anesthesia. 2cc Omnipaque-240 iodinated contrast to visualize the joint space. Mixture of Kenalog 40 mg, 0.5% Bupivacaine 2 mL and Omnipaque 240 3mL was injected into the joint space. TECHNIQUE: Anterior approach. A single stick was successful in gaining access to the joint space. CLINICAL: Decreased pain following injection. (4/10 preinjection; 1/10 post injection) COMPLICATIONS: None. OTHER: Negative. FL/FL hip inj [place] IMPRESSION: Successful right hip injection. JOINT: Left hip NEEDLE: 22 gauge, 3.5 spinal needle. MEDICATION: 2cc buffered 1% lidocaine for subcutaneous anesthesia. 2cc Omnipaque-240 iodinated contrast to visualize the joint space. Mixture of Kenalog 40 mg, 0.5% Bupivacaine 2 mL and Omnipaque 240 3mL was injected into the joint space. TECHNIQUE: Anterior approach. A single stick was successful in gaining access to the joint space. CLINICAL: Decreased pain following injection. (4/10 preinjection; 1/10 post injection) COMPLICATIONS: None. OTHER: Negative. IMPRESSION: Successful left hip injection. Electronically authenticated by: JENNIFER MULLINS Date: 03/08/2024 15:25
[2024-03-08] MEDS: LIDOCAINE HCL 20 ML, SODIUM BICARBONATE 2 MEQ INJ (14:15)
[2024-03-08] MEDS: TRIAMCINOLONE ACETONIDE 40 MG/ML VIAL 80 MG INJ (14:15)
[2024-03-08] MEDS: BUPIVACAINE HCL 0.5% PF 50 MG/10 ML VIAL 4 ML INJ (14:15)
--- NOTE | 2024-03-08 15:02 | SUR.PREOP ---
02/27/24 Pt instructed on procedure, date, time, and prep.
== END 2024-03-08 14:50 | disposition home or self-care (01) ==
LOC: FL 13:19
PROVIDERS: Radiology Diagnostic Radiology; PCP Family Medicine; Visit Provider Nurse Practitioner Family
DX: M16.0 Bilateral primary osteoarthritis of hip (principal); M25.551 Pain in right hip; M25.552 Pain in left hip
CPT/HCPCS: 20610; 77002; J0665; J3301; Q9966